=== PATIENT | male | born 1930 | race Caucasian/White ===

== ENCOUNTER 2017-04-18 13:10 | Inpatient (IN) | payer MEDICARE, OTHER ==
[~2017-04-18] VITALS: Ht 175.3 cm; Wt 87.2 kg
[2017-04-18] VITALS (16 sets, daily range): BP systolic 90–132; BP diastolic 33–108; PULSE 73–105; RESP 19; Ht 175.3 cm; Wt 87.2 kg
[2017-04-18 13:47] LABS: AADO2 Arterial 469.2 mmHg (7.0-24.0); Allen Test ACCEPTAB; Arterial Base Excess 4.5 mmol/L (-3.0-3); Arterial COHb 0.6 % (0.0-3.0); Arterial Fraction of Oxyhgb 97.9 % (93.0-99.0); Arterial HCO3 32.9 mmol/L (22.0-26.0); Arterial MetHb 0.3 % (0.0-1.5); Arterial Total Hemglobin 10.6 g/dl (12.0-18.0); MODE MASK - NRB
--- NOTE | 2017-04-18 13:52 | ERD ---
ER Documentation Chief Complaint Chief Complaint ALOC x 1 day s/p dialysis HPI The patient is a 86-year-old male, presenting to the ER because of altered mental status for 1 day. He had about an hour of dialysis when he became more altered; while he was sent to the ER for further evaluation. Accu check was 101 by EMS, he had low O2 saturation. He is palliative care only. He does not have any fever, cough, chest pain, abdominal pain; he has not been eating and sleeping a lot for the last day according to the daughter. He does not smoke nor drink. He was discharged from [facility] recently in March 30, 2017. He does not smoke nor drink Medical history: Chronic kidney disease, history of CHF, CAD Surgical history: Pacemaker ROS All systems reviewed and are negative except as per history of present illness. Medications Home Meds Reported Medications Ranitidine Hcl* (Zantac*) 150 Mg Tablet, 150 MG PO HS, #30 TAB 04/18/17 Isosorbide Mononitrate* (Isosorbide Mononitrate*) 20 Mg Tablet, 20 MG PO BID, TAB 04/18/17 Tamsulosin Hcl* (Tamsulosin Hcl*) 0.4 Mg Cap.er.24h, 0.4 MG PO HS, CAP 04/18/17 Fluticasone Propionate* (Fluticasone Propionate* Nasal) 50 Mcg/[place] - 16 Gm [place].susp, 1 SPRAY NASAL DAILY, #1 BOTTLE TO EACH NOSTRIL 04/18/17 Sevelamer Carbonate* (Renvela*) 0.8 Gm Powd.pack, 1.6 GM PO WITH MEALS, PACKET 04/18/17 Esomeprazole Magnesium (Esomeprazole Magnesium) 40 Mg Capsule.dr, 40 MG PO BID, #30 CAP 04/18/17 Multivit/Ca Carb/B Cmplx/Fa* ([place]*) 1 Tab Tab, 1 TAB PO DAILY, TAB 04/18/17 Docusate Sodium* (Colace*) 250 Mg Capsule, 250 MG PO DAILY, #30 CAP 04/18/17 Pravastatin Sodium* (Pravastatin Sodium*) 20 Mg Tablet, 20 MG PO HS, TAB 04/18/17 Aspirin* (Aspirin* Chew) 81 Mg Tab.chew, 81 MG PO DAILY, TAB.CHEW 04/18/17 Promethazine Hcl* (Phenergan* Liq) 6.25 Mg/5 Ml Syrup, 6.25 MG PO Q8 Y for COUGH , ML 04/18/17 Amiodarone Hcl* (Amiodarone Hcl*) 100 Mg Tablet, 100 MG PO DAILY, #30 TAB 04/18/17 Fe Fumarate/Shelley/FA/Bcomp,C (Nephron FA Tablet) 1 Each Tablet, 1 EACH PO DAILY, TAB 04/18/17 Allopurinol* (Allopurinol*) 100 Mg Tablet, 100 MG PO DAILY, TAB 04/18/17 Metoprolol Tartrate* (Lopressor*) 50 Mg Tab, 50 MG PO BID, #60 TAB 04/18/17 Ipratropium-Albuterol (Ipratropium-Albuterol) 0.5-3 Mg/3 Ml Ampul.neb, 1 VIAL INHALATION BID, #30 VIAL 04/18/17 Discontinued Reported Medications Amiodarone Hcl* (Amiodarone Hcl*) 200 Mg Tablet, 200 MG PO DAILY, #30 TAB 04/18/17 Allergies Allergies: Coded Allergies: No Known Allergy (Unverified , 04/18/17) PMhx/Soc Hx Cardiac Disorders: Yes (HTN, HF ) Hx Miscellaneous Medical Probl: Yes (ESRD, Pacemaker, ) Hx Alcohol Use: No Hx Substance Use: No Hx Tobacco Use: Yes (40 years ago) Smoking Status: Former smoker Physical Exam Vitals Vital Signs Date Time Temp Pulse Resp B/P Pulse Ox O2 Delivery O2 Flow Rate FiO2 04/18/17 17:18 106 26 111/70 93 Venturi Mask 04/18/17 16:20 98.6 96 14 97/52 96 04/18/17 16:09 89 12 89/60 98 Venturi Mask 10.0 04/18/17 15:47 99 14 89/52 100 Mask 04/18/17 14:51 106 15 85/57 98 Mask 10.0 04/18/17 14:23 118 27 100/67 100 Mask 10.0 04/18/17 14:20 98.6 106 23 100/67 98 04/18/17 13:39 Bag Valve Mask 15 04/18/17 13:28 99.1 109 23 103/66 89 Physical Exam Const: Moderate acute distress.Dehydrated Head: Atraumatic. Eyes: Normal Conjunctiva. ENT: Normal External Ears, Nose and Mouth. Neck: Full range of motion. No meningismus. Resp: Tachypneic, clear to auscultation anteriorly and laterally Cardio: Regular tachycardic Abd: Soft, non distended, normal bowel sounds, non tender. Skin: No petechiae or rashes. Back: No midline or flank tenderness. Ext: No cyanosis, or edema. Neur: Unable to perform due to his condition Psych: Unable to perform due to his condition Result Diagram: 04/18/17 1400 04/18/17 1400 Results 24 hrs Laboratory Tests Test 04/18/17 13:23 04/18/17 13:45 04/18/17 14:00 Blood Gas Specimen Source Blood arterial Arterial Blood Date Drawn 04/18/2017 1:40:02 PM Arterial Blood pH (Temp corrected) 7.275 Arterial Blood pCO2 (Temp correct) 72.5mmhg Arterial Blood pO2 (Temp corrected) 171.3mmHG Arterial Blood HCO3 32.9mmol/L Arterial Blood Base Excess 4.5mmol/L Arterial Blood Oxygen Saturation 98.8mmHG Nima Test ACCEPTAB Arterial Blood Gas Puncture Site Right Radial Arterial Blood Carboxyhemoglobin 0.6% Arterial Blood Methemoglobin 0.3% Blood Gas A-a O2 Differential 469.2mmHg Oxyhemoglobin Percent 97.9% Total Hemoglobin 10.6g/dl Blood Gas Temperature 37.0C Blood Gas Modality MASK - NRB FiO2 100.0% Blood Gas Critical Value Read Back DR. LOUIS Blood Gas Notified Whom RT Blood Gas Notified Time 04/18/2017 1:47:46 PM Bedside Glucose 83mg/dL White Blood Count 7.310^3/ul Red Blood Count 2.7510^6/ul Hemoglobin 9.6g/dl Hematocrit 30.9% Mean Corpuscular Volume 112.4fl Mean Corpuscular Hemoglobin 34.9pg Mean Corpuscular Hemoglobin Concent 31.1g/dl Red Cell Distribution Width 15.5% Platelet Count 81061^3/UL Mean Platelet Volume 9.8fl Neutrophils % 77.7% Segmented Neutrophils % (Manual) 78% Band Neutrophils % (Manual) 5% Lymphocytes % 8.6% Lymphocytes % (Manual) 8% Reactive Lymphocytes % (Manual) 1% Monocytes % 12.8% Monocytes % (Manual) 8% Eosinophils % 0.3% Basophils % 0.1% Nucleated Red Blood Cells % 0.7/100WBC Neutrophils # 5.710^3/ul Neutrophils # (Manual) 5.710^3/ul Band Neutrophils # 0.310^3/ul Absolute Lymphocytes (Manual) 0.510^3/ul Lymphocytes # 0.610^3/ul Reactive Lymphocytes # 0.010^3/ul Monocytes # 0.910^3/ul Absolute Monocytes (Manual) 0.510^3/ul Eosinophils # 0.010^3/ul Basophils # 0.010^3/ul Nucleated Red Blood Cells # 0.110^3/ul Platelet Estimate DECREASED Hypochromasia 1+ Poikilocytosis 1+ Anisocytosis 1+ Macrocytosis 2+ Ovalocytes 1+ Prothrombin Time 16.5Sec Prothrombin Time Ratio 1.3 INR International Normalized Ratio 1.31 Activated Partial Thromboplast Time 32.8Sec Sodium Level 140mmol/L Potassium Level 4.0mmol/L Chloride Level 95mmol/L Carbon Dioxide Level 33mmol/L Anion Gap 16 Blood Urea Nitrogen 25mg/dl Creatinine 5.05mg/dl Glucose Level 90mg/dl Lactic Acid Level 1.2mmol/L Calcium Level 8.9mg/dl Total Bilirubin 0.1mg/dl Direct Bilirubin 0.00mg/dl Indirect Bilirubin 0.1mg/dl Aspartate Amino Transf (AST/SGOT) 21IU/L Alanine Aminotransferase (ALT/SGPT) 32IU/L Alkaline Phosphatase 230IU/L Troponin I 0.074ng/ml Total Protein 7.3g/dl Albumin 3.3g/dl Globulin 4.00g/dl Albumin/Globulin Ratio 0.82 Current Medications Medications (Trade) Dose Ordered Sig/Patsy Route PRN Reason Start Time Stop Time Status Last Admin Dose Admin Vancomycin HCl 250 ml @ 125 mls/hr ONCE IVPB 04/18/17 16:00 04/18/17 17:59 DC 04/18/17 17:47 Piperacillin Sod/ Tazobactam Sod (Zosyn 2.25gm/ 50ml (Pmx)) 50 ml @ 100 mls/hr ONCE ONCE IVPB 04/18/17 16:00 04/18/17 16:29 DC 04/18/17 16:39 Vancomycin HCl VANCOMYCIN PER PHARMACY PER PROTOCOL XX 04/18/17 18:30 UNV Piperacillin Sod/ Tazobactam Sod (Zosyn 2.25gm/ 50ml (Pmx)) 50 ml @ 100 mls/hr Q8 IVPB 04/18/17 22:00 UNV IV Flush (NS 3 ml) 3 ml PER PROTOCOL IV 04/18/17 18:30 UNV Heparin Sodium (Porcine) (Heparin (5000 Units/0.5 ml)) 5,000 unit Q12 SC 04/18/17 21:00 UNV Procedures/MDM UA pending [place] [id number] Radiology Main Line: [phone] DIAGNOSTIC IMAGING REPORT Patient: ZULEIKA HARMON : 1930 Age: 86 Sex: M MR #: [id number] DOS: 04/18/17 1323 Ordering MD: JOSE A LOUIS MD Location: E/R Room/Bed: PROCEDURE: XR Chest. CLINICAL INDICATION: Sepsis. TECHNIQUE: Single frontal view of the chest was obtained COMPARISON: None FINDINGS: Pacemaker device overlying the left chest wall. The heart is enlarged. Aorta calcifications are present. There is mild pulmonary edema with a small left pleural effusion and/or subsegmental atelectasis. A superimposed consolidation cannot be excluded. No evidence of pneumothorax. The bones are osteopenic. IMPRESSION: 1. Mild pulmonary edema with a small left pleural effusion and/or subsegmental atelectasis. A superimposed left basilar pneumonia cannot be excluded. RPTAT:AAJJ Physician Nicholas Date Time Electronically viewed and signed by Physician Nicholas on 04/18/2017 13:58 QL/ CC: JOSE A LOUIS MD [place] [id number] Radiology Main Line: [phone] DIAGNOSTIC IMAGING REPORT Patient: ZULEIKA HARMON : 1930 Age: 86 Sex: M MR #: [id number] DOS: 04/18/17 1323 Ordering MD: JOSE A LOUIS MD Location: E/R Room/Bed: PROCEDURE: CT Brain without contrast. CLINICAL INDICATION: Altered mental status. TECHNIQUE: A CT of the brain without contrast was performed utilizing axial sections from the skull base through the vertex. One or more the following does reduction techniques were utilized: Automated exposure control, adjustment of the mA/ or kV according to patient's size, or use of iterative reconstruction technique. Total exam CTDIvol is 43.19 MGy and DLP is 854.94 mGy-cm. DICOM images are available. COMPARISON: None available. FINDINGS: The ventricles and sulci are mildly to moderately prominent indicative of volume loss. There is no intracranial hemorrhage, mass effect or midline shift. No abnormal intra-axial or extra-axial fluid collections are seen. The sabillon/white matter differentiation is well preserved. There are moderate to marked foci of hypoattenuation in the white matter, which are nonspecific in etiology but likely reflect chronic small vessel ischemic changes. There are moderate intracranial vascular calcifications consistent with atherosclerosis. The visualized paranasal sinuses are essentially clear. There is thinning of bilateral lens indicative of prior lens replacement. Bilateral proptosis is noted. IMPRESSION: 1. No acute intracranial hemorrhage, transcortical infarction or mass effect. 2. Moderate intracranial atherosclerosis and moderate to marked chronic small vessel ischemic changes. 3. Mild to moderate generalized cerebral volume loss. 4. Bilateral proptosis. RPTAT: QQ .Tiffany Jang MD, Date Time Electronically viewed and signed by .Tiffany Jang MD, on 04/18/2017 15: 25 .N/ CC: JOSE A LOUIS MD EKG: Read by emergency physician Rate/Rhythm: Sinus Tachycardia 103 beats/min QRS, ST, T-waves: No ST elevation, no T inversion, 1 AVB, NS IVB Impression: Abnormal EKG MEDICAL MAKING DECISION: The patient is a 86-year-old male, presenting with acute respiratory failure, acute fluid overload, acute pneumonia. He was treated with vancomycin IV, Zosyn IV. He was unable to tolerate BiPAP, he was therefore put on Venturi mask, titrate for O2 sat above 90% The differential diagnoses considered include but are not limited to asthma, COPD, pneumonia, pulmonary embolus, pleural effusion, congestive heart failure, metabolic/septic encephalopathy. Critical Care: Time: 35 minutes excluding all billable procedures. Treatments/Evaluations: Close monitoring and treatment of unstable vital signs, cardiorespiratory, and neurologic status, while maintaining tight balance of fluid, respiratory, and cardiac interventions. Departure Diagnosis: Primary Impression: Acute respiratory failure Additional Impressions: Encephalopathy Fluid overload Pneumonia Anemia Thrombocytopenia Condition: Critical Comments I discussed the findings with the patient. I discussed the patient with on-call hospitalist Dr. Gilliland at 4:55 PM who was made aware of the lab, the treatment , the patient condition. The patient is admitted to ICU Disclaimer: Inadvertent spelling and grammatical errors are likely due to EHR/ dictation software use and do not reflect on the overall quality of patient care. Also, please note that the electronic time recorded on this note does not necessarily reflect the actual time of the patient encounter. JOSE A LOUIS MD Apr 18, 2017 13:51
--- NOTE | 2017-04-18 13:59 | RADRPT ---
PROCEDURE: XR Chest. CLINICAL INDICATION: Sepsis. TECHNIQUE: Single frontal view of the chest was obtained COMPARISON: None FINDINGS: Pacemaker device overlying the left chest wall. The heart is enlarged. Aorta calcifications are present. There is mild pulmonary edema with a small left pleural effusion and/or subsegmental atelectasis. A superimposed consolidation cannot be excluded. No evidence of pneumothorax. The bones are osteopenic. IMPRESSION: 1. Mild pulmonary edema with a small left pleural effusion and/or subsegmental atelectasis. A super imposed left basilar pneumonia cannot be excluded. RPTAT:AAJJ Physician Nicholas Date Time Electronically viewed and signed by Tomi Nevarez Physician on 04/18/2017 13:58 QL/
[2017-04-18 14:28] LABS: BASOPHILS % 0.1 % (0.0-2.0); EOSINOPHILS % 0.3 % (0.0-7.0); HEMATOCRIT 30.9 % (42.0-52.0); HEMOGLOBIN 9.6 g/dl (14.0-18.0); LYMPHOCYTES # 0.6 10^3/ul (0.8-2.9); LYMPHOCYTES % 8.6 % (15.0-51.0); MEAN CORPUSCULAR HEMOGLOBIN 34.9 pg (29.0-33.0); MEAN CORPUSCULAR HGB CONC 31.1 g/dl (32.0-37.0); MEAN CORPUSCULAR VOLUME 112.4 fl (82.0-101.0); MEAN PLATELET VOLUME 9.8 fl (7.4-10.4); MONOCYTE # 0.9 10^3/ul (0.3-0.9); MONOCYTES % 12.8 % (0.0-11.0); NEUTROPHIL # 5.7 10^3/ul (1.6-7.5); NEUTROPHILS % 77.7 % (39.0-77.0); NUCLEATED RED BLOOD CELLS # 0.1 10^3/ul (0.0-0.0); NUCLEATED RED BLOOD CELLS% 0.7 /100WBC (0.0-0.0); PLATELET COUNT 104 10^3/UL (140-415); POSITIVE DIFF @See below; RED BLOOD COUNT 2.75 10^6/ul (4.70-6.10); RED CELL DISTRIBUTION WIDTH 15.5 % (11.5-14.5); WHITE BLOOD COUNT 7.3 10^3/ul (4.8-10.8)
[2017-04-18] MEDS ORDERED: IPRA3AMP INHALATION (14:33)
[2017-04-18] MEDS ORDERED: METO-429 PO (14:34)
[2017-04-18] MEDS ORDERED: ALLO100T PO (14:34)
[2017-04-18] MEDS ORDERED: AMIO100T4 PO (14:35)
[2017-04-18] MEDS ORDERED: FE F1TAB7 PO (14:35)
[2017-04-18] MEDS ORDERED: AMIO200T2 PO (14:35)
[2017-04-18] MEDS ORDERED: ASPI81TA3 PO (14:36)
[2017-04-18] MEDS ORDERED: PROM6.25 PO (14:36)
[2017-04-18] MEDS ORDERED: PRAV20TA63 PO (14:36)
[2017-04-18] MEDS ORDERED: DOCU250C58 PO (14:36)
[2017-04-18] MEDS ORDERED: SEVE0.8P PO (14:37)
[2017-04-18] MEDS ORDERED: ESOM40CA51 PO (14:37)
[2017-04-18] MEDS ORDERED: NEPH PO (14:37)
[2017-04-18] MEDS ORDERED: ISM20 PO (14:38)
[2017-04-18] MEDS ORDERED: FLUT16SP17 NASAL (14:38)
[2017-04-18] MEDS ORDERED: RANI150T9 PO (14:38)
[2017-04-18] MEDS ORDERED: TAMS0.4C2 PO (14:38)
[2017-04-18 14:48] LABS: INR 1.31; PROTIME 16.5 Sec (11.9-14.9); PT RATIO 1.3
[2017-04-18 14:49] LABS: PARTIAL THROMBOPLASTIN TIME 32.8 Sec (25.0-35.0)
[2017-04-18 14:50] LABS: ALBUMIN 3.3 g/dl (3.3-4.9); ALBUMIN/GLOBULIN RATIO 0.82; BILIRUBIN,INDIRECT 0.1 mg/dl (0-1.1); BILIRUBIN,TOTAL 0.1 mg/dl (0.2-1.3); CALCIUM 8.9 mg/dl (8.4-10.2); CREATININE 5.05 mg/dl (0.61-1.24); TOTAL PROTEIN 7.3 g/dl (6.1-8.1)
[2017-04-18 14:58] LABS: ANISOCYTOSIS 1+ (0-0); HYPOCHROMASIA 1+ (0-0); MONOCYTES % (M) 8 % (0-11); OVALOCYTES 1+ (0-0); PLATELET ESTIMATE DECREASED; POIKILOCYTOSIS 1+ (0-0); REACTIVE LYMPHOCYTES% (M) 1 % (0-0)
[2017-04-18 15:01] LABS: TROPONIN-I 0.074 ng/ml (0.00-0.12)
--- NOTE | 2017-04-18 15:26 | RADRPT ---
PROCEDURE: CT Brain without contrast. CLINICAL INDICATION: Altered mental status. TECHNIQUE: A CT of the brain without contrast was performed utilizing axial sections from the skul l base through the vertex. One or more the following does reduction techniques were utilized: Automa reggie exposure control, adjustment of the mA/ or kV according to patient's size, or use of iterative r econstruction technique. Total exam CTDIvol is 43.19 MGy and DLP is 854.94 mGy-cm. DICOM images are available. COMPARISON: None available. FINDINGS: The ventricles and sulci are mildly to moderately prominent indicative of volume loss. There is no intracranial hemorrhage, mass effect or midline shift. No abnormal intra-axial or extra-axial fluid collections are seen. The sabillon/white matter differentiation is well preserved. There are moderate to marked foci of hypoattenuation in the white matter, which are nonspecific in e tiology but likely reflect chronic small vessel ischemic changes. There are moderate intracranial va scular calcifications consistent with atherosclerosis. The visualized paranasal sinuses are essenti ally clear. There is thinning of bilateral lens indicative of prior lens replacement. Bilateral prop tosis is noted. IMPRESSION: 1. No acute intracranial hemorrhage, transcortical infarction or mass effect. 2. Moderate intracranial atherosclerosis and moderate to marked chronic small vessel ischemic henderson es. 3. Mild to moderate generalized cerebral volume loss. 4. Bilateral proptosis. RPTAT: QQ .Tiffany Jang MD, MD Date Time Electronically viewed and signed by .Tiffany Jang MD, MD on 04/18/2017 15:25 .N/
[2017-04-18] MEDS ORDERED: VANCOMYCIN 1 GM (PMX) 250 ML IVPB SCH (16:00)
[2017-04-18] MEDS ORDERED: PIPER-TAZO 2.25 GM (PMX) 50 ML IVPB ONE (16:00)
--- NOTE | 2017-04-18 18:19 | HP ---
Date/Time of Note Date/Time of Note DATE: 04/18/17 TIME: 17:52 Assessment/Plan VTE Prophylaxis VTE Prophylaxis Intervention: heparin Assessment/Plan Chief Complaint/Hosp Course 86 yo male wtih ESRD, chronic respiratory failure who presents with acute on chronic respiratory failrue likley from pneumonia and fluid overload 2/2 ESRD Acute on chronic hypercapneic and hypoxic respiratory failure: - Will CT chest to evaluate burden of pneumonia vs vascular congestion - IV abx for pneumonia: vanco/zosyn - Dr Sanches consulted from nephrology - Needs BIPAP given hypercapnea, O2 to 88-92% ESRD: - HD per Dr Sanches Patient very ill, family is aware. DNR/DNI but all measure until that point to be pursued Problems: HPI/ROS Admit Date/Time Admit Date/Time Hx of Present Illness 86 yo male with ESRD on HD, chornic respiratory failure of unclear etiology, presents from HD session with hypotension, respiratory distress. Patient unable to provide history. Per yury at bedside, he was underoign HD sesssion today, but was hypotensive and short of breath. Only underwent a few minutes then sent to ED. Here found to be hypoxic, hypotensive. XR suggestive of pneumonia and overload. ABG with hypercapnea and hypoxia. Was given BIPAP but unable to tolerate Per his daughter, he was discharged from [facility] for "volume overload" and "pneumonia" about a month ago and was sent home on O2 and bipap. He does not use the bipap. He does not have known lung disease but per daughter was given these modalities for volume overload. He was also enrolled in palliative care and made DNR/DNI at that time. Per family he still DNR/DNI but want full measures short of that PMH/Family/Social Past Medical History ESRD Hearing loss Medical History: congestive heart failure Social History Smoking Status: Former smoker Exam/Review of Systems Vital Signs Vitals Vital Signs Date Time Temp Pulse Resp B/P Pulse Ox O2 Delivery O2 Flow Rate FiO2 04/18/17 17:18 106 26 111/70 93 Venturi Mask 04/18/17 16:20 98.6 04/18/17 16:09 10.0 Exam Exam Very heard of hearing Slightly agitated, appears alert, unable to follow questioning Lugns with rhonchi b/l Heart sounds wnl MM dry Ext without edema Abd soft nt nd CXR wtih effusions possible infitrate Labs Result Diagram: 04/18/17 1400 04/18/17 1400 Medications Medications Current Medications Vancomycin HCl (Vancocin) 250 ml @ 125 mls/hr ONCE IVPB Last administered on 04/18/17t 17:47; Admin Dose 125 MLS/HR; Start 04/18/17 at 16:00; Stop at 17:59 GIL DUMAS MD Apr 18, 2017 18:06
[2017-04-18] MEDS ORDERED: NACL 0.9% 3 ML SYG IV SCH (18:30)
[2017-04-18] MEDS ORDERED: VANCOMYCIN IV PER PHARMACY XX SCH (18:30)
--- NOTE | 2017-04-18 19:15 | CONS ---
Date/Time of Note Date/Time of Note DATE: 04/18/17 TIME: 19:15 Assessment/Plan Assessment/Plan Additional Assessment/Plan 1. Acute on chronic resp failure due to acute fluid overload and Pulmonary edema 2. ESRD on HD, did not had a HD due to Hypotension 3. H/o recent admission at [facility] for fluid overload 4. HTN 5. CAD 6. HL Plan: Pt currently seen in ED, he refused to have BIPAP, on Face mask with 6 liter oxygen will arrange pt HD jw for acute fluid overload, will also keep him on HD for tomrrow with ultrafiltration due to labile BP levophed prn BP support Thanks for consultation, we will continue to follow up Consultation Date/Type/Reason Admit Date/Time 04/18/2017 Date of Consultation: Apr 18, 2017 Type of Consultation: NEPHROLOGY Reason for Consultation Acute fluid overload, pulmonary edema, ESRD on HD Referring Provider: GIL DUMAS MD Hx of Present Illness 86 yo male with ESRD on HD, chornic respiratory failure of unclear etiology, presents from HD session with hypotension, respiratory distress. Patient unable to provide history. Per yury at bedside, he was underoign HD sesssion today, but was hypotensive and short of breath. Only underwent a few minutes then sent to ED. Here found to be hypoxic, hypotensive. XR suggestive of pneumonia and overload. ABG with hypercapnea and hypoxia. as per daughter pt is DNR/DNI, He is noted to ahve fluid overload, pulmonary edema and PNA, Renal has been consulted for acute fluid overload with pul edema, He was recently admitted at [facility] about a month ago for fluid overload. Subjective hx not possible: pt non-verbal Past Medical History Medical History: congestive heart failure, other (ESRD on TTS ) Social History Smoking Status: Former smoker Exam/Review of Systems Vital Signs Vitals Vital Signs Date Time Temp Pulse Resp B/P Pulse Ox O2 Delivery O2 Flow Rate FiO2 04/18/17 19:10 97 13 105/61 95 Venturi Mask 10.0 04/18/17 16:20 98.6 Exam Constitutional: alert, non-verbal Head: normocephalic Eyes: nl conjunctiva Neck: non-tender, supple Respiratory: congested cough, crackles/rales, diminished breath sounds Cardiovascular: nl pulses, regular rate and rhythm Gastrointestinal: non-tender, soft Musculoskeletal: joint tenderness, muscle tone, muscle weakness Extremities: normal pulses Neurological: confused, other (Uncooperatiev for Neuro exam ) Skin: nl turgor Results Result Diagram: 04/18/17 1400 04/18/17 1400 Results 24 hrs Laboratory Tests Test 04/18/17 13:23 04/18/17 13:45 04/18/17 14:00 Blood Gas Specimen Source Blood arterial Arterial Blood Date Drawn 04/18/2017 1:40:02 PM Arterial Blood pH (Temp corrected) 7.275 *L Arterial Blood pCO2 (Temp correct) 72.5 H Arterial Blood pO2 (Temp corrected) 171.3 H Arterial Blood HCO3 32.9 H Arterial Blood Base Excess 4.5 H Arterial Blood Oxygen Saturation 98.8 Nima Test ACCEPTAB Arterial Blood Gas Puncture Site Right Radial Arterial Blood Carboxyhemoglobin 0.6 Arterial Blood Methemoglobin 0.3 Blood Gas A-a O2 Differential 469.2 H Oxyhemoglobin Percent 97.9 Total Hemoglobin 10.6 L Blood Gas Temperature 37.0 Blood Gas Modality MASK - NRB FiO2 100.0 Blood Gas Critical Value Read Back DR. LOUIS Blood Gas Notified Whom RT Blood Gas Notified Time 04/18/2017 1:47:46 PM Bedside Glucose 83 White Blood Count 7.3 Red Blood Count 2.75 L Hemoglobin 9.6 L Hematocrit 30.9 L Mean Corpuscular Volume 112.4 H Mean Corpuscular Hemoglobin 34.9 H Mean Corpuscular Hemoglobin Concent 31.1 L Red Cell Distribution Width 15.5 H Platelet Count 104 L Mean Platelet Volume 9.8 Neutrophils % 77.7 H Segmented Neutrophils % (Manual) 78 H Band Neutrophils % (Manual) 5 H Lymphocytes % 8.6 L Lymphocytes % (Manual) 8 L Reactive Lymphocytes % (Manual) 1 H Monocytes % 12.8 H Monocytes % (Manual) 8 Eosinophils % 0.3 Basophils % 0.1 Nucleated Red Blood Cells % 0.7 H Neutrophils # 5.7 Neutrophils # (Manual) 5.7 Band Neutrophils # 0.3 Absolute Lymphocytes (Manual) 0.5 L Lymphocytes # 0.6 L Reactive Lymphocytes # 0.0 Monocytes # 0.9 Absolute Monocytes (Manual) 0.5 Eosinophils # 0.0 Basophils # 0.0 Nucleated Red Blood Cells # 0.1 H Platelet Estimate DECREASED Hypochromasia 1+ Poikilocytosis 1+ Anisocytosis 1+ Macrocytosis 2+ Ovalocytes 1+ Prothrombin Time 16.5 H Prothrombin Time Ratio 1.3 INR International Normalized Ratio 1.31 Activated Partial Thromboplast Time 32.8 Sodium Level 140 Potassium Level 4.0 Chloride Level 95 L Carbon Dioxide Level 33 H Anion Gap 16 Blood Urea Nitrogen 25 H Creatinine 5.05 H Glucose Level 90 Lactic Acid Level 1.2 Calcium Level 8.9 Total Bilirubin 0.1 L Direct Bilirubin 0.00 Indirect Bilirubin 0.1 Aspartate Amino Transf (AST/SGOT) 21 Alanine Aminotransferase (ALT/SGPT) 32 Alkaline Phosphatase 230 H Troponin I 0.074 Total Protein 7.3 Albumin 3.3 Globulin 4.00 H Albumin/Globulin Ratio 0.82 Medications Medications Current Medications Piperacillin Sod/ Tazobactam Sod (Zosyn 2.25gm/ 50ml (Pmx)) 50 ml @ 100 mls/hr Q8 IVPB ; Start 04/18/17 at 22:00 Heparin Sodium (Porcine) (Heparin (5000 Units/0.5 ml)) 5,000 unit Q12 SC ; Start 04/18/17 at 21:00 CARRIE VALLES MD Apr 18, 2017 19:15
[2017-04-18] MEDS ORDERED: ALBUMIN HUMAN 25% 100 ML IV ONE (20:00)
[2017-04-18] MEDS: HEPARIN 5,000 UNIT/0.5 ML VIAL SC SCH (22:05)
--- NOTE | 2017-04-18 22:38 | RADRPT ---
PROCEDURE: CT chest without contrast CLINICAL INDICATION: Respiratory failure TECHNIQUE: Continues axial CT images were obtained from the thoracic inlet through the upper abdom en. Coronal and sagittal constructions were performed. No contrast was administered. The calculate d radiation dose measures 601 mGy centimeters. The CTDI measures 16 mGy. One or more of the following dose reduction techniques were used: Automated exposure control. Adjustment of the mA and/or kV according to patient size. Use of iterative reconstruction technique. COMPARISON: None. FINDINGS: There is prominent aortic calcification. There is prominent coronary artery calcification. There is moderate to severe cardiomegaly. There is small pericardial fluid. There is no hilar or mediastinal adenopathy. The aorta appears unremarkable, without aneurysm. The lung louis demonstrate scattered areas of ground-glass density, and posterior lung interstitial thickening, likely reflecting pulmonary edema. There is a small right pleural effusion. There is bi basilar atelectasis.. There is no pneumothorax. There are left anterior rib fracture deformities, involving the third through seventh ribs. There ap pears to be partial healing change of the 4th rib. There are are anterior right fourth through seven th rib fractures as well.. There are gallstones in the gallbladder. There are a few hepatic cysts and too small to characterize hypodensities. There are innumerable cysts through the visualized left kidney, a few of which appe ar hyperdense, likely hemorrhagic.. IMPRESSION: 1. Moderate to prominent cardiomegaly. Small pericardial fluid. 2. Prominent aortic calcification, and coronary artery calcification. 3. Scattered pulmonary ground-glass density and interstitial thickening, likely reflecting mild to moderate pulmonary edema. No focal consolidation identified. 4. Small right pleural effusion. 5. Multiple anterior rib fractures, which may be subacute or acute. 6. Gallstones. Interval left renal cysts, partially visualized. Several cysts are hyperdense, likel y hemorrhagic. RPTAT: HBST .Vinayak Isbell MD, Date Time Electronically viewed and signed by .Vinayak Isbell MD, MD on 04/18/2017 22:37 .T/
[2017-04-18 23:16] LABS: ABNORMAL IP MESSAGE 1; BASOPHILS % 0.1 % (0.0-2.0); EOSINOPHILS % 0.6 % (0.0-7.0); HEMATOCRIT 31.8 % (42.0-52.0); HEMOGLOBIN 9.8 g/dl (14.0-18.0); LYMPHOCYTES # 0.6 10^3/ul (0.8-2.9); LYMPHOCYTES % 8.3 % (15.0-51.0); MEAN CORPUSCULAR HGB CONC 30.8 g/dl (32.0-37.0); MEAN CORPUSCULAR VOLUME 113.6 fl (82.0-101.0); MEAN PLATELET VOLUME 10.4 fl (7.4-10.4); MONOCYTE # 0.8 10^3/ul (0.3-0.9); MONOCYTES % 11.8 % (0.0-11.0); NEUTROPHIL # 5.5 10^3/ul (1.6-7.5); NEUTROPHILS % 78.5 % (39.0-77.0); NUCLEATED RED BLOOD CELLS% 0.4 /100WBC (0.0-0.0); PLATELET COUNT 115 10^3/UL (140-415); POSITIVE DIFF @See below; RED CELL DISTRIBUTION WIDTH 15.7 % (11.5-14.5)
[2017-04-18 23:32] LABS: ALBUMIN 3.7 g/dl (3.3-4.9); ALBUMIN/GLOBULIN RATIO 0.9; BILIRUBIN,INDIRECT 0.2 mg/dl (0-1.1); BILIRUBIN,TOTAL 0.2 mg/dl (0.2-1.3); CALCIUM 9.7 mg/dl (8.4-10.2); CREATININE 4.04 mg/dl (0.61-1.24); TOTAL PROTEIN 7.8 g/dl (6.1-8.1)
[2017-04-18 23:33] LABS: AADO2 Arterial 207.3 mmHg (7.0-24.0); Allen Test ACCEPTAB; Arterial Base Excess 3.4 mmol/L (-3.0-3); Arterial COHb 0.9 % (0.0-3.0); Arterial Fraction of Oxyhgb 94.3 % (93.0-99.0); Arterial HCO3 30.4 mmol/L (22.0-26.0); Arterial MetHb 0.1 % (0.0-1.5); Arterial Total Hemglobin 10.4 g/dl (12.0-18.0); MODE MASK - VENTI
[2017-04-18 23:34] LABS: MAGNESIUM 2.1 mg/dl (1.7-2.5); PHOSPHORUS 3.7 mg/dl (2.5-4.9)
[2017-04-18] MEDS: PIPER-TAZO 2.25 GM (PMX) 50 ML IVPB SCH (23:47)
[2017-04-19] VITALS (41 sets, daily range): BP systolic 85–145; BP diastolic 45–88; PULSE 84–119; RESP 13–35
[2017-04-19 05:29] LABS: BASOPHILS % 0.1 % (0.0-2.0); EOSINOPHILS # 0.1 10^3/ul (0.0-0.5); EOSINOPHILS % 0.7 % (0.0-7.0); HEMATOCRIT 29.8 % (42.0-52.0); HEMOGLOBIN 9.3 g/dl (14.0-18.0); LYMPHOCYTES # 0.7 10^3/ul (0.8-2.9); LYMPHOCYTES % 9.9 % (15.0-51.0); MEAN CORPUSCULAR HEMOGLOBIN 35.4 pg (29.0-33.0); MEAN CORPUSCULAR HGB CONC 31.2 g/dl (32.0-37.0); MEAN CORPUSCULAR VOLUME 113.3 fl (82.0-101.0); MEAN PLATELET VOLUME 11.2 fl (7.4-10.4); MONOCYTE # 0.9 10^3/ul (0.3-0.9); MONOCYTES % 13.2 % (0.0-11.0); NEUTROPHIL # 5.2 10^3/ul (1.6-7.5); NEUTROPHILS % 75.5 % (39.0-77.0); NUCLEATED RED BLOOD CELLS% 0.4 /100WBC (0.0-0.0); PLATELET COUNT 113 10^3/UL (140-415); POSITIVE DIFF @See below; RED BLOOD COUNT 2.63 10^6/ul (4.70-6.10); RED CELL DISTRIBUTION WIDTH 15.8 % (11.5-14.5); WHITE BLOOD COUNT 6.9 10^3/ul (4.8-10.8)
[2017-04-19 06:01] LABS: ALBUMIN 3.3 g/dl (3.3-4.9); ALBUMIN/GLOBULIN RATIO 0.84; BILIRUBIN,INDIRECT 0.2 mg/dl (0-1.1); BILIRUBIN,TOTAL 0.2 mg/dl (0.2-1.3); CALCIUM 9.7 mg/dl (8.4-10.2); CREATININE 4.51 mg/dl (0.61-1.24); POTASSIUM 4.3 mmol/L (3.5-5.1); TOTAL PROTEIN 7.2 g/dl (6.1-8.1)
[2017-04-19] MEDS: PIPER-TAZO 2.25 GM (PMX) 50 ML IVPB SCH ×3 (06:09→21:46)
--- NOTE | 2017-04-19 08:27 | CONS ---
Date/Time of Note Date/Time of Note DATE: 04/19/17 TIME: 08:25 Assessment/Plan Assessment/Plan Chief Complaint/Hosp Course 86 yo male with ESRD on HD, chornic respiratory failure of unclear etiology, presents from HD session with hypotension, respiratory distress. Patient unable to provide history. Per yury at bedside, he was underoign HD sesssion today, but was hypotensive and short of breath. Only underwent a few minutes then sent to ED. Here found to be hypoxic, hypotensive. XR suggestive of pneumonia and overload. ABG with hypercapnea and hypoxia. as per daughter pt is DNR/DNI, He is noted to ahve fluid overload, pulmonary edema and PNA, Renal has been consulted for acute fluid overload with pul edema, He was recently admitted at [facility] about a month ago for fluid overload. Problems: Additional Assessment/Plan 1. Acute on chronic resp failure due to acute fluid overload and Pulmonary edema 2. ESRD on HD, did not had a HD due to Hypotension 3. H/o recent admission at [facility] for fluid overload 4. HTN 5. CAD 6. HL Plan: s/p HD yesterday 2 L removed with albumin support will plan for HD today and do ultrafiltration as tolerated levophed prn BP support After today,we will continue his HD on MWF will follow up Consultation Date/Type/Reason Admit Date/Time Apr 18, 2017 at 22:39 Initial Consult Date 04/18/17 Type of Consultation: NEPHROLOGY Reason for Consultation Acute fluid overload, pulmonary edema Referring Provider: GIL DUMAS MD Exam/Review of Systems Vital Signs Vitals Vital Signs Date Time Temp Pulse Resp B/P Pulse Ox O2 Delivery O2 Flow Rate FiO2 04/19/17 08:00 98.1 99 18 108/62 Venturi Mask 15.0 04/19/17 07:00 100 04/19/17 00:17 50 Intake and Output 04/18/17 04/18/17 04/19/17 15:00 23:00 07:00 Intake Total 900 ml 50 ml Output Total 2500 ml 0 ml Balance -1600 ml 50 ml Exam Constitutional: alert, non-verbal, on facemask Respiratory: congested cough, crackles/rales, diminished breath sounds Cardiovascular: nl pulses, regular rate and rhythm Gastrointestinal: non-tender, soft Musculoskeletal: joint tenderness, muscle tone, muscle weakness Extremities: normal pulses Neurological: opens eye but not following commands , other (Uncooperatiev for Neuro exam ) Results Result Diagram: 04/19/17 0453 04/19/17 0453 Results 24 hrs Laboratory Tests Test 04/18/17 13:23 04/18/17 13:45 04/18/17 14:00 04/18/17 19:00 Blood Gas Specimen Source Blood arterial Arterial Blood Date Drawn 04/18/2017 1:40:02 PM Arterial Blood pH (Temp corrected) 7.275 *L Arterial Blood pCO2 (Temp correct) 72.5 H Arterial Blood pO2 (Temp corrected) 171.3 H Arterial Blood HCO3 32.9 H Arterial Blood Base Excess 4.5 H Arterial Blood Oxygen Saturation 98.8 Nima Test ACCEPTAB Arterial Blood Gas Puncture Site Right Radial Arterial Blood Carboxyhemoglobin 0.6 Arterial Blood Methemoglobin 0.3 Blood Gas A-a O2 Differential 469.2 H Oxyhemoglobin Percent 97.9 Total Hemoglobin 10.6 L Blood Gas Temperature 37.0 Blood Gas Modality MASK - NRB FiO2 100.0 Blood Gas Critical Value Read Back DR. LOUIS Blood Gas Notified Whom RT Blood Gas Notified Time 04/18/2017 1:47:46 PM Bedside Glucose 83 White Blood Count 7.3 Red Blood Count 2.75 L Hemoglobin 9.6 L Hematocrit 30.9 L Mean Corpuscular Volume 112.4 H Mean Corpuscular Hemoglobin 34.9 H Mean Corpuscular Hemoglobin Concent 31.1 L Red Cell Distribution Width 15.5 H Platelet Count 104 L Mean Platelet Volume 9.8 Neutrophils % 77.7 H Segmented Neutrophils % (Manual) 78 H Band Neutrophils % (Manual) 5 H Lymphocytes % 8.6 L Lymphocytes % (Manual) 8 L Reactive Lymphocytes % (Manual) 1 H Monocytes % 12.8 H Monocytes % (Manual) 8 Eosinophils % 0.3 Basophils % 0.1 Nucleated Red Blood Cells % 0.7 H Neutrophils # 5.7 Neutrophils # (Manual) 5.7 Band Neutrophils # 0.3 Absolute Lymphocytes (Manual) 0.5 L Lymphocytes # 0.6 L Reactive Lymphocytes # 0.0 Monocytes # 0.9 Absolute Monocytes (Manual) 0.5 Eosinophils # 0.0 Basophils # 0.0 Nucleated Red Blood Cells # 0.1 H Platelet Estimate DECREASED Hypochromasia 1+ Poikilocytosis 1+ Anisocytosis 1+ Macrocytosis 2+ Ovalocytes 1+ Prothrombin Time 16.5 H Prothrombin Time Ratio 1.3 INR International Normalized Ratio 1.31 Activated Partial Thromboplast Time 32.8 Sodium Level 140 Potassium Level 4.0 Chloride Level 95 L Carbon Dioxide Level 33 H Anion Gap 16 Blood Urea Nitrogen 25 H Creatinine 5.05 H Glucose Level 90 Lactic Acid Level 1.2 1.3 Calcium Level 8.9 Total Bilirubin 0.1 L Direct Bilirubin 0.00 Indirect Bilirubin 0.1 Aspartate Amino Transf (AST/SGOT) 21 Alanine Aminotransferase (ALT/SGPT) 32 Alkaline Phosphatase 230 H Troponin I 0.074 Total Protein 7.3 Albumin 3.3 Globulin 4.00 H Albumin/Globulin Ratio 0.82 Test 04/18/17 22:59 04/18/17 23:03 04/19/17 04:53 White Blood Count 7.0 6.9 Red Blood Count 2.80 L 2.63 L Hemoglobin 9.8 L 9.3 L Hematocrit 31.8 L 29.8 L Mean Corpuscular Volume 113.6 H 113.3 H Mean Corpuscular Hemoglobin 35.0 H 35.4 H Mean Corpuscular Hemoglobin Concent 30.8 L 31.2 L Red Cell Distribution Width 15.7 H 15.8 H Platelet Count 115 L 113 L Mean Platelet Volume 10.4 11.2 H Neutrophils % 78.5 H 75.5 Lymphocytes % 8.3 L 9.9 L Monocytes % 11.8 H 13.2 H Eosinophils % 0.6 0.7 Basophils % 0.1 0.1 Nucleated Red Blood Cells % 0.4 H 0.4 H Neutrophils # 5.5 5.2 Lymphocytes # 0.6 L 0.7 L Monocytes # 0.8 0.9 Eosinophils # 0.0 0.1 Basophils # 0.0 0.0 Nucleated Red Blood Cells # 0.0 0.0 Sodium Level 143 143 Potassium Level 4.0 4.3 Chloride Level 97 100 Carbon Dioxide Level 34 H 33 H Anion Gap 16 14 Blood Urea Nitrogen 17 21 H Creatinine 4.04 #H 4.51 H Glucose Level 109 98 Lactic Acid Level 1.5 Calcium Level 9.7 9.7 Phosphorus Level 3.7 Magnesium Level 2.1 Total Bilirubin 0.2 0.2 Direct Bilirubin 0.00 0.00 Indirect Bilirubin 0.2 0.2 Aspartate Amino Transf (AST/SGOT) 23 25 Alanine Aminotransferase (ALT/SGPT) 27 28 Alkaline Phosphatase 226 H 201 H Total Protein 7.8 7.2 Albumin 3.7 3.3 Globulin 4.10 H 3.90 H Albumin/Globulin Ratio 0.90 0.84 Blood Gas Specimen Source Blood arterial Arterial Blood Date Drawn 04/18/2017 11:20:35 PM Arterial Blood pH (Temp corrected) 7.329 L Arterial Blood pCO2 (Temp correct) 59.1 H Arterial Blood pO2 (Temp corrected) 82.7 Arterial Blood HCO3 30.4 H Arterial Blood Base Excess 3.4 H Arterial Blood Oxygen Saturation 95.3 Nima Test ACCEPTAB Arterial Blood Gas Puncture Site Right Radial Arterial Blood Carboxyhemoglobin 0.9 Arterial Blood Methemoglobin 0.1 Blood Gas A-a O2 Differential 207.3 H Oxyhemoglobin Percent 94.3 Total Hemoglobin 10.4 L Blood Gas Temperature 37.0 Blood Gas Actual Respiration Rate 20 Blood Gas Modality MASK - VENTI FiO2 50.0 Blood Gas Notified Whom MG Blood Gas Notified Time 04/18/2017 11:32:42 PM Medications Medications Current Medications Piperacillin Sod/ Tazobactam Sod (Zosyn 2.25gm/ 50ml (Pmx)) 50 ml @ 100 mls/hr Q8 IVPB Last administered on 04/19/17 06:09; Admin Dose 100 MLS/HR; Start at 22:00 Heparin Sodium (Porcine) (Heparin (5000 Units/0.5 ml)) 5,000 unit Q12 SC Last administered on 04/18/17 22:05; Admin Dose 5,000 UNIT; Start 04/18/17 at 21: 00 CARRIE VALLES MD Apr 19, 2017 08:27
[2017-04-19] MEDS: HEPARIN 5,000 UNIT/0.5 ML VIAL SC SCH ×2 (09:13→20:47)
[2017-04-19] MEDS: ALBUTEROL/IPRATROPIUM (NEB) 3 ML AMP HHN SCH ×3 (09:30→20:08)
[2017-04-19] MEDS ORDERED: VANCOMYCIN IV PER PHARMACY XX SCH (13:00)
--- NOTE | 2017-04-19 14:47 | PN ---
Date/Time of Note Date/Time of Note DATE: 04/19/17 TIME: 14:44 Assessment/Plan VTE Prophylaxis VTE Prophylaxis Intervention: heparin Lines/Catheters IV Catheter Type (from Nrs): Peripheral IV Urinary Cath still in place: No Assessment/Plan Chief Complaint/Hosp Course 86 yo male wtih ESRD, chronic respiratory failure who presents with acute on chronic respiratory failrue annaley from fluid overload 2/2 ESRD Acute on chronic hypercapneic and hypoxic respiratory failure: - CT chest is suggestive of fluid overload rather than pneumonia, now much improved with volume removal. GPC bacteremia is presents so will continue vanco /zosyn until speciation and repeat BC - Dr Sanches consulted from nephrology - Needs BIPAP given hypercapnea, O2 to 88-92% ESRD: - HD per Dr Sanches DNR/DNI but all measure until that point to be pursued Problems: Subjective 24 Hr Interval Summary Free Text/Dictation HD performed w > 2L out. Doing remarkably better this AM. Saturating 90-95 on RA BC postiive for GPC Exam/Review of Systems Vital Signs Vitals Vital Signs Date Time Temp Pulse Resp B/P Pulse Ox O2 Delivery O2 Flow Rate FiO2 04/19/17 14:00 107 18 99/60 99 Nasal Cannula 2.0 04/19/17 12:00 98.2 04/19/17 00:17 50 Intake and Output 04/18/17 04/18/17 04/19/17 15:00 23:00 07:00 Intake Total 900 ml 50 ml Output Total 2500 ml 0 ml Balance -1600 ml 50 ml Exam ALert, comfortable appearing No lnoger tahcypneic, Mild JVD improved Lungs w good air entry b/l No edema Results Result Diagram: 04/19/17 0453 04/19/17 0453 Results 24 hrs Laboratory Tests Test 04/18/17 19:00 04/18/17 22:59 04/18/17 23:03 04/19/17 04:53 Lactic Acid Level 1.3 1.5 White Blood Count 7.0 6.9 Red Blood Count 2.80 L 2.63 L Hemoglobin 9.8 L 9.3 L Hematocrit 31.8 L 29.8 L Mean Corpuscular Volume 113.6 H 113.3 H Mean Corpuscular Hemoglobin 35.0 H 35.4 H Mean Corpuscular Hemoglobin Concent 30.8 L 31.2 L Red Cell Distribution Width 15.7 H 15.8 H Platelet Count 115 L 113 L Mean Platelet Volume 10.4 11.2 H Neutrophils % 78.5 H 75.5 Lymphocytes % 8.3 L 9.9 L Monocytes % 11.8 H 13.2 H Eosinophils % 0.6 0.7 Basophils % 0.1 0.1 Nucleated Red Blood Cells % 0.4 H 0.4 H Neutrophils # 5.5 5.2 Lymphocytes # 0.6 L 0.7 L Monocytes # 0.8 0.9 Eosinophils # 0.0 0.1 Basophils # 0.0 0.0 Nucleated Red Blood Cells # 0.0 0.0 Sodium Level 143 143 Potassium Level 4.0 4.3 Chloride Level 97 100 Carbon Dioxide Level 34 H 33 H Anion Gap 16 14 Blood Urea Nitrogen 17 21 H Creatinine 4.04 #H 4.51 H Glucose Level 109 98 Calcium Level 9.7 9.7 Phosphorus Level 3.7 Magnesium Level 2.1 Total Bilirubin 0.2 0.2 Direct Bilirubin 0.00 0.00 Indirect Bilirubin 0.2 0.2 Aspartate Amino Transf (AST/SGOT) 23 25 Alanine Aminotransferase (ALT/SGPT) 27 28 Alkaline Phosphatase 226 H 201 H Total Protein 7.8 7.2 Albumin 3.7 3.3 Globulin 4.10 H 3.90 H Albumin/Globulin Ratio 0.90 0.84 Blood Gas Specimen Source Blood arterial Arterial Blood Date Drawn 04/18/2017 11:20:35 PM Arterial Blood pH (Temp corrected) 7.329 L Arterial Blood pCO2 (Temp correct) 59.1 H Arterial Blood pO2 (Temp corrected) 82.7 Arterial Blood HCO3 30.4 H Arterial Blood Base Excess 3.4 H Arterial Blood Oxygen Saturation 95.3 Nima Test ACCEPTAB Arterial Blood Gas Puncture Site Right Radial Arterial Blood Carboxyhemoglobin 0.9 Arterial Blood Methemoglobin 0.1 Blood Gas A-a O2 Differential 207.3 H Oxyhemoglobin Percent 94.3 Total Hemoglobin 10.4 L Blood Gas Temperature 37.0 Blood Gas Actual Respiration Rate 20 Blood Gas Modality MASK - VENTI FiO2 50.0 Blood Gas Notified Whom MG Blood Gas Notified Time 04/18/2017 11:32:42 PM Thyroid Stimulating Hormone (TSH) 1.930 Test 04/19/17 11:59 Troponin I 0.072 Medications Medications Current Medications Piperacillin Sod/ Tazobactam Sod (Zosyn 2.25gm/ 50ml (Pmx)) 50 ml @ 100 mls/hr Q8 IVPB Last administered on 04/19/17 13:22; Admin Dose 100 MLS/HR; Start at 22:00 Heparin Sodium (Porcine) (Heparin (5000 Units/0.5 ml)) 5,000 unit Q12 SC Last administered on 04/19/17 09:13; Admin Dose 5,000 UNIT; Start 04/18/17 at 21: 00 GIL DUMAS MD Apr 19, 2017 14:47
--- NOTE | 2017-04-19 17:10 | RADRPT ---
Echocardiogram Report Patient Name: ZULEIKA HARMON Gender: Male Date: 1930 Study Date: 19-Apr-2017 Refueler: Chi Fofana RDCS Location: [facility] Ref. Physician: GIL DUMAS Quality: Adequate Procedures: Transthoracic echocardiogram with complete 2D, M-Mode, and doppler examination. Indications: Congestive Heart Failure. 2D/M Mode Doppler Measurement Value Normal Ranges Measurement Value Normal Ranges LVIDd 2D 5.4 3.5 - 5.6 cm JOSÉ MANUEL Vmax 2.4 cm2 LVIDs 2D 3.3 2.1 - 4.1 cm JOSÉ MANUEL VTI 2.4 cm2 LVPWd 2D 1.3 0.6 - 1.1 cm AV Mean Richard 1.4 m/sec IVSd 2D 1.2 0.6 - 1.1 cm AV Mean PG 9.4 mmHg AoR Diam 2D 3.5 2.0 - 3.7 cm AV Peak Richard 2.3 m/sec EDV 2D 138.8 cm3 AV Peak PG 21.0 mmHg ESV 2D 36.9 cm3 AV VTI 34.7 cm LA Dimen 2D 4.4 2.3 - 4.0 cm LVOT Mean Richard 0.7 m/sec LVOT Diam 2.7 cm LVOT Mean PG 2.3 mmHg LVOT Peak Richard 1.0 m/sec LVOT Peak PG 3.9 mmHg LVOT VTI 21.8 cm MV E Peak Richard 1.2 m/sec MV A Peak Richard 0.2 m/sec MV E/A 8.3 MV Decel Time [address] [facility] 7 MV E/A 8.3 TR Peak Richard 4.8 m/sec TR Peak PG 90.6 mmHg RVSP 99.0 mmHg Findings Left Ventricle: Normal left ventricular cavity size. Mild concentric left ventricular hypertrophy. Severe global left ventricular systolic dysfunction. Ejection fraction is visually estimated at 25 %. Tissue Doppler/Mitral Doppler indices are consistent with restrictive physiology with markedly elevated left atrial pressure (Stage IIIIV diastolic dysfunction). Right Ventricle: Mild right ventricular systolic dysfunction. Mild enlargement of right ventricle. Pacemaker right heart. Left Atrium: There is mild enlargement of left atrium. Right Atrium: There is moderate enlargement of right atrium. Mitral Valve: Normal appearance and function of the mitral valve with trace physiologic regurgitation. Aortic Valve: Mild aortic stenosis. Aortic valve Max velocity 2.29 m/sec. Max PG 21.00 mmHg. Mean PG 9.40 mmHg. Aortic cusps appear moderately calcified. Trace to mild aortic valve regurgitation. Tricuspid Valve: Estimated peak PA systolic pressure 99 mmHg. Tricuspid valve appears mildly thickened. There is moderate to severe tricuspid regurgitation. Pulmonic Valve: Normal pulmonic valve appearance. There is trace pulmonic regurgitation. Pericardium: Trivial pericardial effusion. Aorta: Normal aortic root. IVC: Normal size and normal respiratory collapse consistent with normal right atrial pressure. Conclusions Normal left ventricular cavity size. Mild concentric left ventricular hypertrophy. Severe global left ventricular systolic dysfunction. Ejection fraction is visually estimated at 25 %. Tissue Doppler/Mitral Doppler indices are consistent with restrictive physiology with markedly elevated left atrial pressure (Stage III-IV diastolic dysfunction). Normal appearance and function of the mitral valve with trace physiologic regurgitation. Mild aortic stenosis. Aortic valve Max velocity 2.29 m/sec. Max PG 21.00 mmHg. Mean PG 9.40 mmHg. Aortic cusps appear moderately calcified. Trace to mild aortic valve regurgitation. Estimated peak PA systolic pressure 99 mmHg. Tricuspid valve appears mildly thickened. There is moderate to severe tricuspid regurgitation. Electronically Signed By: Quincy Gutierrez 19-Apr-2017 17:09:34 -0800 Patient Name: ZULEIKA HARMON Study Date: 19-Apr-[id number]
--- NOTE | 2017-04-19 19:28 | RADRPT ---
Vent Rate: 103 bpm RR Interval: 0 msec MN Interval: 0 msec QRS Duration: 140 msec QT Interval: 334 msec QTC Interval: 437 msec P-R-T [place]: 0 - -81 - 101 degrees Atrial fibrillation with rapid ventricular response Left axis deviation LBBB Nonspecific T wave abnormality , probably digitalis effect Abnormal ECG Electronically Signed By: Domingo Olivares [id number]
[2017-04-20] VITALS (13 sets, daily range): BP systolic 87–146; BP diastolic 49–81; PULSE 91–115; RESP 16–22
[2017-04-20] MEDS ORDERED: LORAZEPAM 2 MG INJ IV ONE ×2 (01:00→16:30)
[2017-04-20] MEDS ORDERED: HALOPERIDOL 5 MG INJ IM ONE (01:00)
[2017-04-20] MEDS: ALBUTEROL/IPRATROPIUM (NEB) 3 ML AMP HHN SCH ×4 (01:56→19:57)
[2017-04-20] MEDS: PIPER-TAZO 2.25 GM (PMX) 50 ML IVPB SCH ×3 (05:22→22:17)
[2017-04-20] MEDS: PANTOPRAZOLE 40 MG INJ IV SCH (05:22)
[2017-04-20] MEDS: HEPARIN 5,000 UNIT/0.5 ML VIAL SC SCH ×2 (11:30→22:20)
--- NOTE | 2017-04-20 15:29 | PN ---
Date/Time of Note Date/Time of Note DATE: 04/20/17 TIME: 15:26 Assessment/Plan VTE Prophylaxis VTE Prophylaxis Intervention: LMWH Lines/Catheters IV Catheter Type (from Nrs): Saline Lock Urinary Cath still in place: No Assessment/Plan Chief Complaint/Hosp Course 86 yo male wtih ESRD, chronic respiratory failure who presents with acute on chronic respiratory failrue annaley from fluid overload 2/2 ESRD Acute on chronic hypercapneic and hypoxic respiratory failure: - CT chest is suggestive of fluid overload rather than pneumonia, now much improved with volume removal. Staph bacteremia is presents so will continue vanco/zosyn until speciation and repeat BC - Dr Sanches consulted from nephrology - No stable on RA ESRD: - HD per Dr Sanches DNR/DNI Family considering hospice placement at discharge Problems: Subjective 24 Hr Interval Summary Free Text/Dictation Patient became agitated requiring sedation. Currently very sleepy respiratoyr status markedly better Discussed advanced nature of patient's case with his daughter at bedside. We have agreed for hospice referral. She requests placement in a facility for him if possible. She is unsure whether or not to continue dialysis. Exam/Review of Systems Vital Signs Vitals Vital Signs Date Time Temp Pulse Resp B/P Pulse Ox O2 Delivery O2 Flow Rate FiO2 04/20/17 13:29 88 18 96 Nasal Cannula 2.0 04/20/17 11:28 97.9 124/60 04/19/17 00:17 50 Intake and Output 04/19/17 04/19/17 04/20/17 15:00 23:00 07:00 Intake Total 600 ml 50 ml 50 ml Output Total 2500 ml 0 ml 0 ml Balance -1900 ml 50 ml 50 ml Exam Sleepy after sedation Breathing comfortably JVD mildly elevated Results Result Diagram: 04/19/17 0453 04/19/17 0453 Results 24 hrs Laboratory Tests Test 04/19/17 18:28 04/20/17 08:10 Bedside Glucose 77 Random Vancomycin Level 9.0 Medications Medications Current Medications Piperacillin Sod/ Tazobactam Sod (Zosyn 2.25gm/ 50ml (Pmx)) 50 ml @ 100 mls/hr Q8 IVPB Last administered on 04/20/17t 14:20; Admin Dose 100 MLS/HR; Start at 22:00 Heparin Sodium (Porcine) (Heparin (5000 Units/0.5 ml)) 5,000 unit Q12 SC Last administered on 04/20/17 11:30; Admin Dose 5,000 UNIT; Start 04/18/17 at 21: 00 Pantoprazole 40 mg 40 mg DAILY@06 IV Last administered on 04/20/17 05:22; Admin Dose 40 MG; Start 04/20/17 at 06:00 Vancomycin HCl/ Sodium Chloride (Vancocin/NS) 250 ml @ 83.333 mls/ hr ONCE IVPB ; Start 04/20/17 at 16:00; Stop 04/20/17 at 18:59 GIL DUMAS MD Apr 20, 2017 15:29
[2017-04-20] MEDS ORDERED: VANCOMYCIN 1.25 GM in SOD CHLORIDE 0.9% 250 ML IVPB SCH (16:00)
--- NOTE | 2017-04-20 22:04 | CONS ---
Date/Time of Note Date/Time of Note DATE: 04/20/17 TIME: 22:03 Assessment/Plan Assessment/Plan Chief Complaint/Hosp Course 86 yo male with ESRD on HD, chornic respiratory failure of unclear etiology, presents from HD session with hypotension, respiratory distress. Patient unable to provide history. Per yury at bedside, he was underoign HD sesssion today, but was hypotensive and short of breath. Only underwent a few minutes then sent to ED. Here found to be hypoxic, hypotensive. XR suggestive of pneumonia and overload. ABG with hypercapnea and hypoxia. as per daughter pt is DNR/DNI, He is noted to ahve fluid overload, pulmonary edema and PNA, Renal has been consulted for acute fluid overload with pul edema, He was recently admitted at [facility] about a month ago for fluid overload. Problems: Additional Assessment/Plan 1. Acute on chronic resp failure due to acute fluid overload and Pulmonary edema 2. ESRD on HD, did not had a HD due to Hypotension 3. H/o recent admission at [facility] for fluid overload 4. HTN 5. CAD 6. HL Plan: s/p HD x 2 days in a row, No HD today, will plan for HD tomorro wthen he will be on MWF Schedule will follow up Consultation Date/Type/Reason Admit Date/Time Apr 18, 2017 at 22:39 Initial Consult Date 04/18/17 Type of Consultation: NEPHROLOGY Referring Provider: GIL DUMAS MD Exam/Review of Systems Vital Signs Vitals Vital Signs Date Time Temp Pulse Resp B/P Pulse Ox O2 Delivery O2 Flow Rate FiO2 04/20/17 20:21 108 04/20/17 19:58 2.0 04/20/17 19:58 20 93 Nasal Cannula 04/20/17 19:36 97.8 127/60 04/19/17 00:17 50 Intake and Output 04/19/17 04/19/17 04/20/17 15:00 23:00 07:00 Intake Total 600 ml 50 ml 50 ml Output Total 2500 ml 0 ml 0 ml Balance -1900 ml 50 ml 50 ml Results Result Diagram: 04/19/17 0453 04/19/17 0453 Results 24 hrs Laboratory Tests Test 04/20/17 08:10 Random Vancomycin Level 9.0 Medications Medications Current Medications Piperacillin Sod/ Tazobactam Sod (Zosyn 2.25gm/ 50ml (Pmx)) 50 ml @ 100 mls/hr Q8 IVPB Last administered on 04/20/17 14:20; Admin Dose 100 MLS/HR; Start at 22:00 Heparin Sodium (Porcine) (Heparin (5000 Units/0.5 ml)) 5,000 unit Q12 SC Last administered on 04/20/17 11:30; Admin Dose 5,000 UNIT; Start 04/18/17 at 21: 00 Pantoprazole (Protonix Iv) 40 mg DAILY@06 IV Last administered on 04/20/17 05 :22; Admin Dose 40 MG; Start 04/20/17 at 06:00 Quetiapine Fumarate (Seroquel) 25 mg BID GTB ; Start 04/20/17 at 21:00 CARRIE VALLES MD Apr 20, 2017 22:04
[2017-04-20] MEDS: QUETIAPINE 25 MG TAB GTB SCH (22:17)
[2017-04-21] VITALS (24 sets, daily range): BP systolic 91–157; BP diastolic 58–83; PULSE 99–148; RESP 16–22
[2017-04-21] MEDS: ALBUTEROL/IPRATROPIUM (NEB) 3 ML AMP HHN SCH ×4 (01:45→19:39)
[2017-04-21] MEDS ORDERED: LORAZEPAM 2 MG INJ IV ONE (01:46)
[2017-04-21] MEDS ORDERED: HALOPERIDOL 5 MG INJ IM PRN (02:30)
[2017-04-21] MEDS: PIPER-TAZO 2.25 GM (PMX) 50 ML IVPB SCH (05:03)
[2017-04-21] MEDS: PANTOPRAZOLE 40 MG INJ IV SCH (05:04)
--- NOTE | 2017-04-21 07:41 | CONS ---
Date/Time of Note Date/Time of Note DATE: 04/21/17 TIME: 07:37 Assessment/Plan Assessment/Plan Additional Assessment/Plan Family conference to discuss goals of care and hospice services. Will ask social work service to schedule family conference. Consultation Date/Type/Reason Admit Date/Time Apr 18, 2017 at 22:39 Hx of Present Illness 86-year-old male presented to [facility] emergency room sent in from hemodialysis center hypotensive. The history is taken from patient's medical record there are no family members at the bedside and patient is a non- historian and altered. Patient has a history of fluid overload confirmed by CT scan on presentation not consistent with pneumonia. He remains altered at this time in detail past medical history is not available. I am asked to speak to family members concerning ongoing level of care and hospice referral. Full palliative care consultation will be done after family conference. Palliative care Past Medical History Medical History: congestive heart failure, other (ESRD on TTS ) Social History Smoking Status: Former smoker Exam/Review of Systems Vital Signs Vitals Vital Signs Date Time Temp Pulse Resp B/P Pulse Ox O2 Delivery O2 Flow Rate FiO2 04/21/17 06:00 98.1 103 21 133/80 94 Nasal Cannula 4.0 04/19/17 00:17 50 Intake and Output 04/20/17 04/20/17 04/21/17 15:00 23:00 07:00 Intake Total 50 ml 250 ml 0 ml Balance 50 ml 250 ml 0 ml Exam Constitutional: frail, other (Moderately obese totally confused and unable to answer questions) Respiratory: clear to auscultation, congested cough (Confused frail unable to answer questions appropriately), crackles/rales, normal air movement, No diminished breath sounds, No intercostal retraction, No labored breathing , No other, No respirations, No tactile fremitus, No wheezing Cardiovascular: irregular rhythm, nl pulses Neurological: other (Does not follow simple commands responds to stimuli by body movement. Cranial nerves grossly intact moving all 4 extremities without difficulty globally delirious) Results Result Diagram: 04/19/17 0453 04/19/17 0453 Results 24 hrs Laboratory Tests Test 04/20/17 08:10 Random Vancomycin Level 9.0 Medications Medications Current Medications Piperacillin Sod/ Tazobactam Sod (Zosyn 2.25gm/ 50ml (Pmx)) 50 ml @ 100 mls/hr Q8 IVPB Last administered on 04/21/17 05:03; Admin Dose 100 MLS/HR; Start at 22:00 Heparin Sodium (Porcine) (Heparin (5000 Units/0.5 ml)) 5,000 unit Q12 SC Last administered on 04/20/17 22:20; Admin Dose 5,000 UNIT; Start 04/18/17 at 21: 00 Pantoprazole (Protonix Iv) 40 mg DAILY@06 IV Last administered on 04/21/17 05 :04; Admin Dose 40 MG; Start 04/20/17 at 06:00 Quetiapine Fumarate (Seroquel) 25 mg BID GTB ; Start 04/20/17 at 21:00 Haloperidol (Haldol) 3 mg ONCE PRN IM AGITATION/ANXIETY; Start 04/21/17 at 02: 30 FARAZ GRAVES Apr 21, 2017 07:41
[2017-04-21] MEDS: QUETIAPINE 25 MG TAB GTB SCH ×2 (09:00→20:08)
[2017-04-21] MEDS: HEPARIN 5,000 UNIT/0.5 ML VIAL SC SCH ×2 (09:44→20:12)
--- NOTE | 2017-04-21 15:16 | PN ---
Date/Time of Note Date/Time of Note DATE: 04/21/17 TIME: 15:14 Assessment/Plan VTE Prophylaxis VTE Prophylaxis Intervention: LMWH Lines/Catheters IV Catheter Type (from Nrs): Saline Lock Urinary Cath still in place: No Assessment/Plan Chief Complaint/Hosp Course 86 yo male wtih ESRD, chronic respiratory failure who presents with acute on chronic respiratory failrue annaley from fluid overload 2/2 ESRD Acute on chronic hypercapneic and hypoxic respiratory failure: - Markedly improved s/p HD sessions - Dr Sanches consulted from nephrology - No stable on RA Coag neg staph bacteremia: contaminant, dc abx ESRD: - HD per Dr Sanches Dementia, stable Agitation, encephelopathy: Seroquel added, ativan PRN, restraints as needed DNR/DNI Family considering hospice placement at discharge, family meeting tomorrow Problems: Subjective 24 Hr Interval Summary Free Text/Dictation HD today Palliative being arranged Requiring benzos for agitation Exam/Review of Systems Vital Signs Vitals Vital Signs Date Time Temp Pulse Resp B/P Pulse Ox O2 Delivery O2 Flow Rate FiO2 04/21/17 15:10 98.5 72 19 122/58 97 04/21/17 13:47 Nasal Cannula 4.0 04/19/17 00:17 50 Intake and Output 04/20/17 04/20/17 04/21/17 15:00 23:00 07:00 Intake Total 50 ml 250 ml 0 ml Balance 50 ml 250 ml 0 ml Exam Appears comfortable Breathign nonlabored Results Result Diagram: 04/19/17 0453 04/19/17 0453 Medications Medications Current Medications Heparin Sodium (Porcine) (Heparin (5000 Units/0.5 ml)) 5,000 unit Q12 SC Last administered on 04/21/17 09:44; Admin Dose 5,000 UNIT; Start 04/18/17 at 21: 00 Pantoprazole (Protonix Iv) 40 mg DAILY@06 IV Last administered on 04/21/17 05 :04; Admin Dose 40 MG; Start 04/20/17 at 06:00 Quetiapine Fumarate (Seroquel) 25 mg BID GTB ; Start 04/20/17 at 21:00 Haloperidol (Haldol) 3 mg ONCE PRN IM AGITATION/ANXIETY; Start 04/21/17 at 02: 30 GIL DUMAS MD Apr 21, 2017 15:16
--- NOTE | 2017-04-21 22:12 | CONS ---
Date/Time of Note Date/Time of Note DATE: 04/21/17 TIME: 22:10 Assessment/Plan Assessment/Plan Additional Assessment/Plan 1. Acute on chronic resp failure due to acute fluid overload and Pulmonary edema 2. ESRD on HD, did not had a HD due to Hypotension 3. H/o recent admission at [facility] for fluid overload 4. HTN 5. CAD 6. HL Plan: s/p HD today 1.8 l removed, will keep pt on MWF Schedule will follow up Consultation Date/Type/Reason Admit Date/Time Apr 18, 2017 at 22:39 Initial Consult Date 04/18/17 Type of Consultation: NEPHROLOGY Referring Provider: GIL DUMAS MD 24 HR Interval Summary Free Text/Dictation s/p HD 1.8 L removed, BP stable Exam/Review of Systems Vital Signs Vitals Vital Signs Date Time Temp Pulse Resp B/P Pulse Ox O2 Delivery O2 Flow Rate FiO2 04/21/17 20:12 118 04/21/17 20:00 99.0 16 127/60 92 04/21/17 20:00 Nasal Cannula 4.0 04/19/17 00:17 50 Intake and Output 04/20/17 04/20/17 04/21/17 15:00 23:00 07:00 Intake Total 50 ml 250 ml 0 ml Balance 50 ml 250 ml 0 ml Exam Constitutional: alert, awake Respiratory: congested cough, crackles/rales, diminished breath sounds Cardiovascular: nl pulses, regular rate and rhythm Gastrointestinal: non-tender, soft Musculoskeletal: joint tenderness, muscle tone, muscle weakness Extremities: normal pulses Neurological: normal Results Result Diagram: 04/19/17 0453 04/19/17 045 Medications Medications Current Medications Heparin Sodium (Porcine) (Heparin (5000 Units/0.5 ml)) 5,000 unit Q12 SC Last administered on 04/21/17 20:12; Admin Dose 5,000 UNIT; Start 04/18/17 at 21: 00 Pantoprazole (Protonix Iv) 40 mg DAILY@06 IV Last administered on 04/21/17 05 :04; Admin Dose 40 MG; Start 04/20/17 at 06:00 Quetiapine Fumarate (Seroquel) 25 mg BID GTB Last administered on 04/21/17 20 :08; Admin Dose 25 MG; Start 04/20/17 at 21:00 Haloperidol (Haldol) 3 mg ONCE PRN IM AGITATION/ANXIETY; Start 04/21/17 at 02: 30 CARRIE VALLES MD Apr 21, 2017 22:12
[2017-04-22] VITALS (15 sets, daily range): BP systolic 85–146; BP diastolic 51–73; PULSE 96–119; RESP 16–20
[2017-04-22] MEDS: ALBUTEROL/IPRATROPIUM (NEB) 3 ML AMP HHN SCH ×3 (01:49→15:03)
[2017-04-22] MEDS: PANTOPRAZOLE 40 MG INJ IV SCH (06:15)
[2017-04-22] MEDS: QUETIAPINE 25 MG TAB GTB SCH ×2 (09:04→21:45)
[2017-04-22] MEDS: HEPARIN 5,000 UNIT/0.5 ML VIAL SC SCH ×2 (09:21→22:47)
[2017-04-22] MEDS ORDERED: BISACODYL (EC) 5 MG TAB PO PRN (13:30)
--- NOTE | 2017-04-22 14:45 | PN ---
Date/Time of Note Date/Time of Note DATE: 04/22/17 TIME: 14:43 Assessment/Plan VTE Prophylaxis VTE Prophylaxis Intervention: heparin Lines/Catheters IV Catheter Type (from Nrs): Saline Lock Urinary Cath still in place: No Assessment/Plan Chief Complaint/Hosp Course 86 yo male wtih ESRD, chronic respiratory failure who presents with acute on chronic respiratory failrue dyana from fluid overload 2/2 ESRD Acute on chronic hypercapneic and hypoxic respiratory failure: - Markedly improved s/p HD sessions, now breathing comfortably on RA Coag neg staph bacteremia: contaminant, dc abx ESRD: - HD per Dr Sanches Dementia, stable Agitation, encephelopathy: Seroquel added, ativan PRN, restraints as needed DNR/DNI Family considering hospice placement at discharge, family meeting cancelled. He is ready for discharge to SNF. Major decision that remains is whether to continue HD but the family is not ready to discuss stopping dialysis yet Problems: Subjective 24 Hr Interval Summary Free Text/Dictation Patient comfortable, sleepign Ready for discharge Family meeting cancelled today per Dr De La Torre Exam/Review of Systems Vital Signs Vitals Vital Signs Date Time Temp Pulse Resp B/P Pulse Ox O2 Delivery O2 Flow Rate FiO2 04/22/17 12:06 110 04/22/17 12:00 Nasal Cannula 4.0 04/22/17 11:52 98.0 19 101/58 94 04/19/17 00:17 50 Intake and Output 04/21/17 04/21/17 04/22/17 15:00 23:00 07:00 Intake Total 400 ml 50 ml 50 ml Output Total 2200 ml 0 ml 0 ml Balance -1800 ml 50 ml 50 ml Exam Constitutional: alert, oriented, well developed Psych: nl mood/affect, no complaints Head: atraumatic, normocephalic Eyes: EOMI, PERRL, nl conjunctiva, nl lids, nl sclera ENMT: nl external ears & nose, nl lips & teeth, nl nasal mucosa & septum Neck: non-tender, supple Respiratory: clear to auscultation, normal air movement Cardiovascular: nl pulses, regular rate and rhythm Gastrointestinal: nl liver, spleen, non-tender, soft Musculoskeletal: nl extremities to inspection, nl gait and stance Extremities: normal pulses 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, nl mental status, nl speech, nl strength Skin: nl turgor, No rash or lesions Lymph: nl lymph nodes Results Result Diagram: 04/19/17 0453 04/19/17 045 Medications Medications Current Medications Heparin Sodium (Porcine) (Heparin (5000 Units/0.5 ml)) 5,000 unit Q12 SC Last administered on 04/22/17 09:21; Admin Dose 5,000 UNIT; Start 04/18/17 at 21: 00 Pantoprazole (Protonix Iv) 40 mg DAILY@06 IV Last administered on 04/22/17 06 :15; Admin Dose 40 MG; Start 04/20/17 at 06:00 Quetiapine Fumarate (Seroquel) 25 mg BID GTB Last administered on 04/22/17 09 :04; Admin Dose 25 MG; Start 04/20/17 at 21:00 Haloperidol (Haldol) 3 mg ONCE PRN IM AGITATION/ANXIETY; Start 04/21/17 at 02: 30 Bisacodyl (Dulcolax) 5 mg DAILY PRN PO CONSTIPATION; Start 04/22/17 at 13:30 Bisacodyl (Dulcolax) 10 mg DAILY PRN PO CONSTIPATION; Start 04/22/17 at 13:30 GIL DUMAS MD Apr 22, 2017 14:45
--- NOTE | 2017-04-22 17:50 | CONS ---
Date/Time of Note Date/Time of Note DATE: 04/22/17 TIME: 17:50 Assessment/Plan Assessment/Plan Additional Assessment/Plan 1. Acute on chronic resp failure due to acute fluid overload and Pulmonary edema 2. ESRD on HD, did not had a HD due to Hypotension 3. H/o recent admission at [facility] for fluid overload 4. HTN 5. CAD 6. HL Plan: s/p HD yesterday 1.8 L removed, will keep pt on MWF Schedule- next HD on Monday will follow up Consultation Date/Type/Reason Admit Date/Time Apr 18, 2017 at 22:39 Initial Consult Date 04/18/17 Type of Consultation: NEPHROLOGY Referring Provider: GIL DUMAS MD 24 HR Interval Summary Free Text/Dictation doing ok, oxygen saturation stable, BP stable Exam/Review of Systems Vital Signs Vitals Vital Signs Date Time Temp Pulse Resp B/P Pulse Ox O2 Delivery O2 Flow Rate FiO2 04/22/17 16:04 115 04/22/17 16:00 Nasal Cannula 4.0 04/22/17 15:31 98.0 19 130/68 94 04/19/17 00:17 50 Intake and Output 04/21/17 04/21/17 04/22/17 15:00 23:00 07:00 Intake Total 400 ml 50 ml 50 ml Output Total 2200 ml 0 ml 0 ml Balance -1800 ml 50 ml 50 ml Exam Constitutional: alert, awake Respiratory: diminished breath sounds Cardiovascular: nl pulses, regular rate and rhythm Gastrointestinal: non-tender, soft Musculoskeletal: joint tenderness, muscle tone, muscle weakness Extremities: normal pulses Neurological: normal Results Result Diagram: 04/19/17 0453 04/19/17 0453 Medications Medications Current Medications Heparin Sodium (Porcine) (Heparin (5000 Units/0.5 ml)) 5,000 unit Q12 SC Last administered on 04/22/17 09:21; Admin Dose 5,000 UNIT; Start 04/18/17 at 21: 00 Quetiapine Fumarate (Seroquel) 25 mg BID GTB Last administered on 04/22/17 09 :04; Admin Dose 25 MG; Start 04/20/17 at 21:00 Bisacodyl (Dulcolax) 5 mg DAILY PRN PO CONSTIPATION; Start 04/22/17 at 13:30 CARRIE VLALES MD Apr 22, 2017 17:50
[2017-04-22] MEDS: BISACODYL (EC) 5 MG TAB PO PRN (18:07)
[2017-04-23 08:06] VITALS: BP 110/66; RESP 24
[2017-04-23] MEDS: QUETIAPINE 25 MG TAB GTB SCH ×2 (08:31→20:41)
[2017-04-23] MEDS: HEPARIN 5,000 UNIT/0.5 ML VIAL SC SCH ×2 (08:37→21:14)
[2017-04-23 11:56] VITALS: BP 113/57; RESP 20
--- NOTE | 2017-04-23 13:54 | CONS ---
Date/Time of Note Date/Time of Note DATE: 04/23/17 TIME: 13:54 Assessment/Plan Assessment/Plan Additional Assessment/Plan 1. Acute on chronic resp failure due to acute fluid overload and Pulmonary edema 2. ESRD on HD, did not had a HD due to Hypotension 3. H/o recent admission at [facility] for fluid overload 4. HTN 5. CAD 6. HL Plan: s/p HD on monday 1.8 L removed, will keep pt on MWF Schedule- HD ordered for monday will follow up Consultation Date/Type/Reason Admit Date/Time Apr 18, 2017 at 22:39 Initial Consult Date 04/18/17 Type of Consultation: NEPHROLOGY Referring Provider: GIL DUMAS MD Exam/Review of Systems Vital Signs Vitals Vital Signs Date Time Temp Pulse Resp B/P Pulse Ox O2 Delivery O2 Flow Rate FiO2 04/23/17 11:56 99.4 106 20 113/57 95 04/23/17 08:00 Nasal Cannula 2.0 Intake and Output 04/22/17 04/22/17 04/23/17 15:00 23:00 07:00 Intake Total 200 ml Balance 200 ml Exam Constitutional: alert, non-verbal Respiratory: congested cough, crackles/rales, diminished breath sounds Cardiovascular: nl pulses, regular rate and rhythm Gastrointestinal: non-tender, soft Musculoskeletal: joint tenderness, muscle tone, muscle weakness Results Result Diagram: 04/19/17 0453 04/19/17 0453 Medications Medications Current Medications Heparin Sodium (Porcine) (Heparin (5000 Units/0.5 ml)) 5,000 unit Q12 SC Last administered on 04/23/17 08:37; Admin Dose 5,000 UNIT; Start 04/18/17 at 21: 00 Quetiapine Fumarate (Seroquel) 25 mg BID GTB Last administered on 04/23/17 08 :31; Admin Dose 25 MG; Start 04/20/17 at 21:00 Bisacodyl (Dulcolax) 5 mg DAILY PRN PO CONSTIPATION Last administered on 18:07; Admin Dose 5 MG; Start 04/22/17 at 13:30 CARRIE VALLES MD Apr 23, 2017 13:54
--- NOTE | 2017-04-23 14:01 | PN ---
Date/Time of Note Date/Time of Note DATE: 04/23/17 TIME: 13:59 Assessment/Plan VTE Prophylaxis VTE Prophylaxis Intervention: heparin Lines/Catheters IV C[facility] Type (from [facility] Saline Lock Urinary Cath still in place: No Assessment/Plan Chief Complaint/Hosp Course 86 yo male wtih ESRD, chronic respiratory failure who presents with acute on chronic respiratory failrue dyana from fluid overload 2/2 ESRD Acute on chronic hypercapneic and hypoxic respiratory failure: - Markedly improved s/p HD sessions, now breathing comfortably on RA Coag neg staph bacteremia: contaminant, dc abx ESRD: - HD per Dr Sanches Dementia, stable Agitation, encephelopathy: Seroquel added, ativan PRN, restraints as needed DNR/DNI Patient will be discharged to SNF. Major decision that remains is whether to continue HD but the family is not ready to discuss stopping dialysis yet so will continue. Problems: Subjective 24 Hr Interval Summary Free Text/Dictation Resting comfortably No events Awaiting placement in SNF Exam/Review of Systems Vital Signs Vitals Vital Signs Date Time Temp Pulse Resp B/P Pulse Ox O2 Delivery O2 Flow Rate FiO2 04/23/17 11:56 99.4 106 20 113/57 95 04/23/17 08:00 Nasal Cannula 2.0 Intake and Output 04/22/17 04/22/17 04/23/17 15:00 23:00 07:00 Intake Total 200 ml Balance 200 ml Exam Resting comfortably, NAD Restpiratoy status nonlabored clear lungs Euvolemic Results Result Diagram: 04/19/17 0453 04/19/17 0453 Medications Medications Current Medications Heparin Sodium (Porcine) (Heparin (5000 Units/0.5 ml)) 5,000 unit Q12 SC Last administered on 04/23/17 08:37; Admin Dose 5,000 UNIT; Start 04/18/17 at 21: 00 Quetiapine Fumarate (Seroquel) 25 mg BID GTB Last administered on 04/23/17 08 :31; Admin Dose 25 MG; Start 04/20/17 at 21:00 Bisacodyl (Dulcolax) 5 mg DAILY PRN PO CONSTIPATION Last administered on 18:07; Admin Dose 5 MG; Start 04/22/17 at 13:30 GIL DUMAS MD Apr 23, 2017 14:01
[2017-04-23 15:53] VITALS: BP 118/67; RESP 20
[2017-04-23 20:00] VITALS: BP 103/56; RESP 19
[2017-04-23] MEDS: BISACODYL (EC) 5 MG TAB PO PRN (20:41)
[2017-04-24] VITALS (13 sets, daily range): BP systolic 92–122; BP diastolic 50–71; PULSE 78–83; RESP 18–20
[2017-04-24] MEDS: QUETIAPINE 25 MG TAB GTB SCH ×2 (08:18→20:19)
[2017-04-24] MEDS: HEPARIN 5,000 UNIT/0.5 ML VIAL SC SCH ×2 (08:36→20:25)
[2017-04-24] MEDS: BISACODYL (EC) 5 MG TAB PO PRN (15:04)
--- NOTE | 2017-04-24 17:48 | PN ---
Date/Time of Note Date/Time of Note DATE: 04/24/17 TIME: 17:43 Assessment/Plan VTE Prophylaxis VTE Prophylaxis Intervention: heparin Lines/Catheters IV [facility] Type (from [facility]): Saline Lock Urinary Cath still in place: No Assessment/Plan Chief Complaint/Hosp Course 1. Acute on chronic hypercapnic and hypoxic respiratory failure secondary to volume overload from end-stage renal disease and CHF Improved status post dialysis 2. 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 Stage renal disease HD per nephrology 4. Dementia with agitation prison placement pending Continue Seroquel 5. Coag neg staph bacteremia: contaminant Antibiotics have been discontinued CODE STATUS: DNR/DNI Prophylaxis: Heparin Discharge planning: DC to SNF when bed available Problems: Subjective 24 Hr Interval Summary Subjective hx not possible: pt non-verbal Exam/Review of Systems Vital Signs Vitals Vital Signs Date Time Temp Pulse Resp B/P Pulse Ox O2 Delivery O2 Flow Rate FiO2 04/24/17 16:35 2.0 04/24/17 15:51 98.6 105 20 92/60 93 04/24/17 08:15 Nasal Cannula Intake and Output 04/23/17 04/23/17 04/24/17 15:00 23:00 07:00 Intake Total 700 ml 100 ml Balance 700 ml 100 ml Exam Constitutional: non-verbal Respiratory: clear to auscultation Cardiovascular: regular rate and rhythm Gastrointestinal: soft, No distended Musculoskeletal: nl extremities to inspection Medications Medications Current Medications Heparin Sodium (Porcine) (Heparin (5000 Units/0.5 ml)) 5,000 unit Q12 SC Last administered on 04/24/17 08:36; Admin Dose 5,000 UNIT; Start 04/18/17 at 21: 00 Quetiapine Fumarate (Seroquel) 25 mg BID GTB Last administered on 04/24/17 08 :18; Admin Dose 25 MG; Start 04/20/17 at 21:00 Bisacodyl (Dulcolax) 5 mg DAILY PRN PO CONSTIPATION Last administered on 15:04; Admin Dose 5 MG; Start 04/22/17 at 13:30 ELENA ROQUE Apr 24, 2017 17:48
--- NOTE | 2017-04-24 21:09 | CONS ---
Date/Time of Note Date/Time of Note DATE: 04/24/17 TIME: 21:08 Assessment/Plan Assessment/Plan Additional Assessment/Plan 1. Acute on chronic resp failure due to acute fluid overload and Pulmonary edema 2. ESRD on HD, did not had a HD due to Hypotension 3. H/o recent admission at [facility] for fluid overload 4. HTN 5. CAD 6. HL Plan: s/p HD today 2.5 L removed , will keep pt on MWF Schedule will follow up plan is to d/c to SNF when bed available Consultation Date/Type/Reason Admit Date/Time Apr 18, 2017 at 22:39 Initial Consult Date 04/18/17 Type of Consultation: NEPHROLOGY Referring Provider: GIL DUMAS MD 24 HR Interval Summary Free Text/Dictation s/p HD today 2.5 L removed, afebrile, BP stable Exam/Review of Systems Vital Signs Vitals Vital Signs Date Time Temp Pulse Resp B/P Pulse Ox O2 Delivery O2 Flow Rate FiO2 04/24/17 21:00 2.0 04/24/17 20:14 98.5 83 18 104/62 96 04/24/17 08:15 Nasal Cannula Intake and Output 04/23/17 04/23/17 04/24/17 15:00 23:00 07:00 Intake Total 700 ml 100 ml Balance 700 ml 100 ml Exam Constitutional: non-verbal Respiratory: clear to auscultation Cardiovascular: regular rate and rhythm Gastrointestinal: soft, No distended Musculoskeletal: nl extremities to inspection Medications Medications Current Medications Heparin Sodium (Porcine) (Heparin (5000 Units/0.5 ml)) 5,000 unit Q12 SC Last administered on 04/24/17 20:25; Admin Dose 5,000 UNIT; Start 04/18/17 at 21: 00 Quetiapine Fumarate (Seroquel) 25 mg BID GTB Last administered on 04/24/17 20 :19; Admin Dose 25 MG; Start 04/20/17 at 21:00 Bisacodyl (Dulcolax) 5 mg DAILY PRN PO CONSTIPATION Last administered on 15:04; Admin Dose 5 MG; Start 04/22/17 at 13:30 CARRIE VALLES MD Apr 24, 2017 21:09
[2017-04-25] VITALS: BP 111/60; RESP 18
[2017-04-25 07:15] VITALS: BP 97/73; RESP 19
--- NOTE | 2017-04-25 08:46 | CONS ---
Date/Time of Note Date/Time of Note DATE: 04/25/17 TIME: 08:42 Assessment/Plan Assessment/Plan Chief Complaint/Hosp Course 86-year-old male presented to [facility] emergency room sent in from hemodialysis center hypotensive. The history is taken from patient's medical record there are no family members at the bedside and patient is a non- historian and altered. Patient has a history of fluid overload confirmed by CT scan on presentation not consistent with pneumonia. He remains altered at this time in detail past medical history is not available. I am asked to speak to family members concerning ongoing level of care and hospice referral. Full palliative care consultation will be done after family conference. Palliative care Problems: Consultation Date/Type/Reason Admit Date/Time Apr 18, 2017 at 22:39 Initial Consult Date 04/18/17 Type of Consultation: Palliative care Reason for Consultation Have reached out patient's daughter this morning who initially answer the phone then we became disconnected. I have left a message on her voicemail to call back I get the impression that may not received a callback. Will discuss with case management. Referring Provider: GIL DUMAS MD Exam/Review of Systems Vital Signs Vitals Vital Signs Date Time Temp Pulse Resp B/P Pulse Ox O2 Delivery O2 Flow Rate FiO2 04/25/17 07:15 98.1 101 19 97/73 95 04/24/17 21:00 2.0 04/24/17 20:00 Nasal Cannula Intake and Output 04/24/17 04/24/17 04/25/17 15:00 23:00 07:00 Intake Total 500 ml 200 ml Output Total 3000 ml 0 ml Balance -2500 ml 200 ml Exam Constitutional: frail, non-verbal Neurological: other (Does not respond to simple commands oriented 0 moves arms and legs non-purposefully, cranial nerves II through XII grossly intact motor function grossly intact) Medications Medications Current Medications Heparin Sodium (Porcine) (Heparin (5000 Units/0.5 ml)) 5,000 unit Q12 SC Last administered on 04/24/17t 20:25; Admin Dose 5,000 UNIT; Start 04/18/17 at 21: 00 Quetiapine Fumarate (Seroquel) 25 mg BID GTB Last administered on 04/24/17 20 :19; Admin Dose 25 MG; Start 04/20/17 at 21:00 Bisacodyl (Dulcolax) 5 mg DAILY PRN PO CONSTIPATION Last administered on t 15:04; Admin Dose 5 MG; Start 04/22/17 at 13:30 FARAZ GRAVES Apr 25, 2017 08:46
--- NOTE | 2017-04-25 09:04 | CONS ---
Date/Time of Note Date/Time of Note DATE: 04/25/17 TIME: 08:46 Assessment/Plan Assessment/Plan Chief Complaint/Hosp Course 86-year-old male presented to [facility] emergency room sent in from hemodialysis center hypotensive. The history is taken from patient's medical record there are no family members at the bedside and patient is a non- historian and altered. Patient has a history of fluid overload confirmed by CT scan on presentation not consistent with pneumonia. He remains altered at this time in detail past medical history is not available. I am asked to speak to family members concerning ongoing level of care and hospice referral. Full palliative care consultation will be done after family conference. Palliative care Problems: Consultation Date/Type/Reason Admit Date/Time Apr 18, 2017 at 22:39 Initial Consult Date 04/18/17 Type of Consultation: Palliative care Referring Provider: IGL DUMAS MD 24 HR Interval Summary Free Text/Dictation daughter called back......first hospitalization pt became delirious ...was able to do some ADL'S now not ...generally failing and family members realize that he is not doing well. It sounds as if they have spoken about level of care that he wants to receive in the future and they have ponder discontinuing hemodialysis. I have made a decision amongst themselves to DO NOT RESUSCITATE in event he becomes very ill but admitted very clear to them his friend is for multiple rehospitalizations in the future. I discussed goals of care and options at this time they are considering discussing once again whether or not he would want to continue with this level of care including dialysis. I have asked him to readdress that question once again amongst family members and to get back to me she currently has my cell phone number. I do not believe he has a long time to live nor does he have a good prognosis for full recovery of his cognitive functions. I have introduced the concept of hospice and palliative care she is receptive to this I will speak to case management hopefully we could find a hospice which has palliative care arm general be most appropriate to be followed until he transitions into end-of-life care. Palliative performance scale is 10%. Exam/Review of Systems Vital Signs Vitals Vital Signs Date Time Temp Pulse Resp B/P Pulse Ox O2 Delivery O2 Flow Rate FiO2 04/25/17 07:15 98.1 101 19 97/73 95 04/24/17 21:00 2.0 04/24/17 20:00 Nasal Cannula Intake and Output 04/24/17 04/24/17 04/25/17 15:00 23:00 07:00 Intake Total 500 ml 200 ml Output Total 3000 ml 0 ml Balance -2500 ml 200 ml Medications Medications Current Medications Heparin Sodium (Porcine) (Heparin (5000 Units/0.5 ml)) 5,000 unit Q12 SC Last administered on 04/24/17 20:25; Admin Dose 5,000 UNIT; Start 04/18/17 at 21: 00 Quetiapine Fumarate (Seroquel) 25 mg BID GTB Last administered on 04/24/17 20 :19; Admin Dose 25 MG; Start 04/20/17 at 21:00 Bisacodyl (Dulcolax) 5 mg DAILY PRN PO CONSTIPATION Last administered on 15:04; Admin Dose 5 MG; Start 04/22/17 at 13:30 FARAZ GRAVES Apr 25, 2017 09:04
[2017-04-25] MEDS: QUETIAPINE 25 MG TAB GTB SCH ×2 (09:07→21:00)
[2017-04-25] MEDS: HEPARIN 5,000 UNIT/0.5 ML VIAL SC SCH ×2 (09:09→21:02)
[2017-04-25 11:18] VITALS: BP 98/55; RESP 19
[2017-04-25 15:12] VITALS: BP 95/56; RESP 19
--- NOTE | 2017-04-25 17:53 | PN ---
Date/Time of Note Date/Time of Note DATE: 04/25/17 TIME: 17:52 Assessment/Plan VTE Prophylaxis VTE Prophylaxis Intervention: heparin Lines/Catheters IV [facility] Saline Lock Urinary Cath still in place: No Assessment/Plan Chief Complaint/Hosp Course 1. Acute on chronic hypercapnic and hypoxic respiratory failure secondary to volume overload from end-stage renal disease and CHF Improved status post dialysis 2. 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 Stage renal disease HD per nephrology 4. Dementia with agitation Hospice eval Palliative care consultation appreciated Continue Seroquel 5. Coag neg staph bacteremia: contaminant Antibiotics have been discontinued CODE STATUS: DNR/DNI Prophylaxis: Heparin Discharge planning: Possible DC to prison with hospice Problems: Subjective 24 Hr Interval Summary Subjective hx not possible: pt non-verbal Exam/Review of Systems Vital Signs Vitals Vital Signs Date Time Temp Pulse Resp B/P Pulse Ox O2 Delivery O2 Flow Rate FiO2 04/25/17 17:49 3.0 04/25/17 15:12 98.2 104 19 95/56 96 04/25/17 08:00 Nasal Cannula Intake and Output 04/24/17 04/24/17 04/25/17 15:00 23:00 07:00 Intake Total 500 ml 200 ml Output Total 3000 ml 0 ml Balance -2500 ml 200 ml Exam Constitutional: non-verbal Respiratory: clear to auscultation Cardiovascular: regular rate and rhythm Gastrointestinal: soft, No distended Musculoskeletal: nl extremities to inspection Medications Medications Current Medications Heparin Sodium (Porcine) (Heparin (5000 Units/0.5 ml)) 5,000 unit Q12 SC Last administered on 04/25/17 09:09; Admin Dose 5,000 UNIT; Start 04/18/17 at 21: 00 Quetiapine Fumarate (Seroquel) 25 mg BID GTB Last administered on 04/25/17 09 :07; Admin Dose 25 MG; Start 04/20/17 at 21:00 Bisacodyl (Dulcolax) 5 mg DAILY PRN PO CONSTIPATION Last administered on 15:04; Admin Dose 5 MG; Start 04/22/17 at 13:30 ELENA ROQUE Apr 25, 2017 17:53
[2017-04-25 19:57] VITALS: BP 102/63; RESP 20
--- NOTE | 2017-04-25 20:24 | CONS ---
Date/Time of Note Date/Time of Note DATE: 04/25/17 TIME: 20:22 Assessment/Plan Assessment/Plan Additional Assessment/Plan 1. Acute on chronic resp failure due to acute fluid overload and Pulmonary edema 2. ESRD on HD, did not had a HD due to Hypotension 3. H/o recent admission at [facility] for fluid overload 4. HTN 5. CAD 6. HL Plan: Plan for HD tomorrow, will keep Pt on MWF schedule will follow up plan is to d/c to SNF when bed available Consultation Date/Type/Reason Admit Date/Time Apr 18, 2017 at 22:39 Initial Consult Date 04/18/17 Type of Consultation: NEPHROLOGY Referring Provider: GIL DUMAS MD 24 HR Interval Summary Free Text/Dictation no acute events, Bp stable, pt wants hospice but they want to continue HD Exam/Review of Systems Vital Signs Vitals Vital Signs Date Time Temp Pulse Resp B/P Pulse Ox O2 Delivery O2 Flow Rate FiO2 04/25/17 19:57 97.6 100 20 102/63 95 04/25/17 18:56 3.0 04/25/17 08:00 Nasal Cannula Intake and Output 04/24/17 04/24/17 04/25/17 15:00 23:00 07:00 Intake Total 500 ml 200 ml Output Total 3000 ml 0 ml Balance -2500 ml 200 ml Medications Medications Current Medications Heparin Sodium (Porcine) (Heparin (5000 Units/0.5 ml)) 5,000 unit Q12 SC Last administered on 04/25/17 09:09; Admin Dose 5,000 UNIT; Start 04/18/17 at 21: 00 Quetiapine Fumarate (Seroquel) 25 mg BID GTB Last administered on 04/25/17 09 :07; Admin Dose 25 MG; Start 04/20/17 at 21:00 Bisacodyl (Dulcolax) 5 mg DAILY PRN PO CONSTIPATION Last administered on 15:04; Admin Dose 5 MG; Start 04/22/17 at 13:30 CARRIE VALLES MD Apr 25, 2017 20:24
[2017-04-26] VITALS (9 sets, daily range): BP systolic 78–120; BP diastolic 31–67; PULSE 62–100; RESP 18–20
[2017-04-26] MEDS: QUETIAPINE 25 MG TAB GTB SCH (08:34)
[2017-04-26] MEDS: HEPARIN 5,000 UNIT/0.5 ML VIAL SC SCH (08:44)
[2017-04-26] MEDS ORDERED: BALSAM PERU/CASTOR OIL 60 GM TUBE TOP SCH (09:00)
[2017-04-26] MEDS ORDERED: ALBUMIN HUMAN 25% 100 ML IV PRN (10:30)
--- NOTE | 2017-04-26 12:04 | CONS ---
Date/Time of Note Date/Time of Note DATE: 04/26/17 TIME: 12:03 Assessment/Plan Assessment/Plan Chief Complaint/Hosp Course 86-year-old male presented to [facility] emergency room sent in from hemodialysis center hypotensive. The history is taken from patient's medical record there are no family members at the bedside and patient is a non- historian and altered. Patient has a history of fluid overload confirmed by CT scan on presentation not consistent with pneumonia. He remains altered at this time in detail past medical history is not available. I am asked to speak to family members concerning ongoing level of care and hospice referral. Full palliative care consultation will be done after family conference. Palliative care Problems: Consultation Date/Type/Reason Admit Date/Time Apr 18, 2017 at 22:39 Initial Consult Date 04/18/17 Type of Consultation: Palliative care Reason for Consultation Discussed ongoing level of care with case management. I have asked him to schedule family conference as patient is too weak to undergo aggressive rehabilitation at this time. Those of care need to be readdressed with them once again. Referring Provider: GIL DUMAS MD Exam/Review of Systems Vital Signs Vitals Vital Signs Date Time Temp Pulse Resp B/P Pulse Ox O2 Delivery O2 Flow Rate FiO2 04/26/17 07:56 97.7 104 18 118/67 99 04/26/17 00:44 3.0 04/25/17 20:00 Nasal Cannula Medications Medications Current Medications Heparin Sodium (Porcine) (Heparin (5000 Units/0.5 ml)) 5,000 unit Q12 SC Last administered on 04/26/17 08:44; Admin Dose 5,000 UNIT; Start 04/18/17 at 21: 00 Quetiapine Fumarate (Seroquel) 25 mg BID GTB Last administered on 04/26/17 08 :34; Admin Dose 25 MG; Start 04/20/17 at 21:00 Bisacodyl (Dulcolax) 5 mg DAILY PRN PO CONSTIPATION Last administered on 15:04; Admin Dose 5 MG; Start 04/22/17 at 13:30 FARAZ GRAVES Apr 26, 2017 12:04
[2017-04-26] MEDS ORDERED: DOCUSATE SODIUM 100 MG CAP PO PRN (13:00)
[2017-04-26] MEDS ORDERED: MAGNESIUM HYDROXIDE 30ML CUP PO PRN (13:00)
--- NOTE | 2017-04-26 16:46 | DS ---
Date/Time of Note Date/Time of Note DATE: 04/26/17 TIME: 16:33 Discharge Summary Admission/Discharge Info Admit Date/Time Apr 18, 2017 at 22:39 Discharge Date/Time April 26, 2017 Discharge Diagnosis 1. Acute on chronic hypercapnic and hypoxic respiratory failure secondary to volume overload from end-stage renal disease and CHF Improved status post dialysis 2. 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 End-stage renal disease Continue HD 4. Dementia with agitation DC to long term facility, patient's family not ready for hospice at this time 5. Coag neg staph bacteremia: contaminant Antibiotics have been discontinued Patient Condition: Good Hospital Course Patient is a 86 yo male with ESRD on HD, likely CHF and progressive dementia, presents from HD session with hypotension, and hypercapnic and hypoxic respiratory distress. Patient was noted to have volume overload and was dialyzed with improvement of respiratory distress. Patient had an echo that showed an EF of 5%. Patient does have progressive dementia and appears to have become worse the past several months and is now not ambulating. Patient did present from home and patient was not felt to be stable for discharge back home. Palliative care was consulted and patient daughter was initially considering hospice but she did not feel ready for this. Patient daughter did agree for transfer to long term. On the day of discharge patient vitals, labs exam stable he had no acute complaints questions of daughter were answered. Home Meds Reported Medications Ranitidine Hcl* (Zantac*) 150 Mg Tablet, 150 MG PO HS, #30 TAB 04/18/17 Isosorbide Mononitrate* (Isosorbide Mononitrate*) 20 Mg Tablet, 20 MG PO BID, TAB 04/18/17 Tamsulosin Hcl* (Tamsulosin Hcl*) 0.4 Mg Cap.er.24h, 0.4 MG PO HS, CAP 04/18/17 Fluticasone Propionate* (Fluticasone Propionate* Nasal) 50 Mcg/[place] - 16 Gm [place].susp, 1 SPRAY NASAL DAILY, #1 BOTTLE TO EACH NOSTRIL 04/18/17 Sevelamer Carbonate* (Renvela*) 0.8 Gm Powd.pack, 1.6 GM PO WITH MEALS, PACKET 04/18/17 Esomeprazole Magnesium (Esomeprazole Magnesium) 40 Mg Capsule.dr, 40 MG PO BID, #30 CAP 04/18/17 Multivit/Ca Carb/B Cmplx/Fa* ([place]*) 1 Tab Tab, 1 TAB PO DAILY, TAB 04/18/17 Docusate Sodium* (Colace*) 250 Mg Capsule, 250 MG PO DAILY, #30 CAP 04/18/17 Pravastatin Sodium* (Pravastatin Sodium*) 20 Mg Tablet, 20 MG PO HS, TAB 04/18/17 Aspirin* (Aspirin* Chew) 81 Mg Tab.chew, 81 MG PO DAILY, TAB.CHEW 04/18/17 Promethazine Hcl* (Phenergan* Liq) 6.25 Mg/5 Ml Syrup, 6.25 MG PO Q8 Y for COUGH , ML 04/18/17 Amiodarone Hcl* (Amiodarone Hcl*) 100 Mg Tablet, 100 MG PO DAILY, #30 TAB 04/18/17 Fe Fumarate/[place]/FA/Bcomp,C (Nephron FA Tablet) 1 Each Tablet, 1 EACH PO DAILY, TAB 04/18/17 Allopurinol* (Allopurinol*) 100 Mg Tablet, 100 MG PO DAILY, TAB 04/18/17 Metoprolol Tartrate* (Lopressor*) 50 Mg Tab, 50 MG PO BID, #60 TAB 04/18/17 Ipratropium-Albuterol (Ipratropium-Albuterol) 0.5-3 Mg/3 Ml Ampul.neb, 1 VIAL INHALATION BID, #30 VIAL 04/18/17 Follow-up Plan Follow-up with physicians at long term facility Primary Care Provider Not On Staff Doctor Time spent on discharge: > 30 minutes ELENA ROQUE Apr 26, 2017 16:45
--- NOTE | 2017-04-26 17:35 | CONS ---
Date/Time of Note Date/Time of Note DATE: 04/26/17 TIME: 17:35 Assessment/Plan Assessment/Plan Additional Assessment/Plan 1. Acute on chronic resp failure due to acute fluid overload and Pulmonary edema 2. ESRD on HD, did not had a HD due to Hypotension 3. H/o recent admission at [facility] for fluid overload 4. HTN 5. CAD 6. HL Plan: pt did not tolerate HD today, Bp dropped durign Hd and it was stopped after 1hr - next HD will be on monday, will keep Pt on MWF schedule will follow up plan is to d/c to SNF when bed available Consultation Date/Type/Reason Admit Date/Time Apr 18, 2017 at 22:39 Initial Consult Date 04/18/17 Type of Consultation: NEPHROLOGY Referring Provider: GIL DUMAS MD 24 HR Interval Summary Free Text/Dictation pt did not tolerate HD today, Bp dropped durign Hd and it was stopped after 1hr- Exam/Review of Systems Vital Signs Vitals Vital Signs Date Time Temp Pulse Resp B/P Pulse Ox O2 Delivery O2 Flow Rate FiO2 04/26/17 15:28 98.2 99 18 104/63 94 04/26/17 00:44 3.0 04/25/17 20:00 Nasal Cannula Exam Constitutional: non-verbal Respiratory: clear to auscultation Cardiovascular: regular rate and rhythm Gastrointestinal: soft, No distended Musculoskeletal: nl extremities to inspection Medications Medications Current Medications Heparin Sodium (Porcine) (Heparin (5000 Units/0.5 ml)) 5,000 unit Q12 SC Last administered on 04/26/17 08:44; Admin Dose 5,000 UNIT; Start 04/18/17 at 21: 00 Quetiapine Fumarate (Seroquel) 25 mg BID GTB Last administered on 04/26/17 08 :34; Admin Dose 25 MG; Start 04/20/17 at 21:00 Bisacodyl (Dulcolax) 5 mg DAILY PRN PO CONSTIPATION Last administered on 15:04; Admin Dose 5 MG; Start 04/22/17 at 13:30 Magnesium Hydroxide (Milk Of Mag) 30 ml BID PRN PO CONSTIPATION Last administered on 04/26/17 14:27; Admin Dose 30 ML; Start 04/26/17 at 13:00 Docusate Sodium (Colace) 100 mg BID PRN PO CONSTIPATION Last administered on t 14:27; Admin Dose 100 MG; Start 04/26/17 at 13:00 CARRIE VALLES MD Apr 26, 2017 17:35
== END 2017-04-26 18:58 | DRG 291 ==
LOC: E/R 13:10 → ICU 22:39 → TEL 04-19 22:15
PROVIDERS: ADMIT Internal Medicine; ATTEND Internal Medicine
PROC: 5A1D70Z Performance of Urinary Filtration, Intermittent, Less than 6 Hours Per Day (ICD-10-PCS; principal; 2017-04-18)
DX: I13.2 Hypertensive heart and chronic kidney disease with heart failure and with stage 5 chronic kidney disease, or end stage renal disease (principal); J96.21 Acute and chronic respiratory failure with hypoxia; J18.9 Pneumonia, unspecified organism; G93.40 Encephalopathy, unspecified; N18.6 End stage renal disease; E87.70 Fluid overload, unspecified; F03.91 Unspecified dementia, unspecified severity, with behavioral disturbance; J96.22 Acute and chronic respiratory failure with hypercapnia; I50.32 Chronic diastolic (congestive) heart failure; Z66 Do not resuscitate; Z99.2 Dependence on renal dialysis; I25.10 Atherosclerotic heart disease of native coronary artery without angina pectoris; Z95.0 Presence of cardiac pacemaker; Z87.891 Personal history of nicotine dependence; E78.5 Hyperlipidemia, unspecified; Z51.5 Encounter for palliative care; F41.9 Anxiety disorder, unspecified
CPT/HCPCS: 36415; 36600; 70450; 71010; 71250; 80053; 80202; 82803; 82962; 83605; 83735; 84100; 84443; 84484; 85025; 85610; 85730; 87040; 87081; 90935; 92526; 92610; 93005; 93306; 94640; 94664; 96365; 96366; 96367; 96368; 96372; C9113; J1630; J1644; J2060; J2543; J3370; J7050; P9047

== ENCOUNTER 2017-05-02 12:44 | Inpatient (IN) | END 2017-05-05 18:05 | DRG 70 ==